=== PATIENT | female | born 1940 | race Caucasian/White ===

== ENCOUNTER 2019-05-19 11:27 | Emergency (ER) | payer OTHER ==
--- OUTSIDE RECORDS SUMMARY | 2019-05-19 11:31 | XMS REPORT ---
:1940 [facility] Address [address] [place] [address] Dr. Rivera [address] [place] [id number] Care Team Providers Name Role Phone Unavailable Unavailable Unavailable Problems This patient has no known problems. Allergies, Adverse Reactions, Alerts This patient has no known allergies or adverse reactions. Medications This patient has no known medications.
--- NOTE | 2019-05-19 12:54 | RAD REPORT ---
EXAM DESCRIPTION: RAD - Lumbar Spine 3 Views - 05/19/2019 12:48 pm CLINICAL HISTORY: Back pain FINDINGS: The alignment of the lumbar spine is satisfactory. Osteoporosis. Mild compression fracture involves the superior vertebral endplate of L3 vertebral body. I suspect th at it is acute. If clinically indicated this could be confirmed with CT. 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
--- NOTE | 2019-05-19 12:55 | RAD REPORT ---
EXAM DESCRIPTION: RAD - Pelvis - 05/19/2019 12:48 pm CLINICAL HISTORY: Fall, pelvic and hip pain COMPARISON: None. TECHNIQUE: AP imaging of the pelvis was obtained. FINDINGS: No fracture of the bony pelvis. No fracture, dislocation or other acute hip joint finding. Minimal SI joint degenerative change. Lumbar spine degenerative changes are present and separately d etailed. No soft tissue abnormality. IMPRESSION: No fracture or acute findings in the pelvis.
[2019-05-19] MEDS ORDERED: KETOROLAC 30 MG/ML INJ ONE (13:59)
[2019-05-19] MEDS ORDERED: DEXAMETHASONE 10 MG/ML VIAL ONE (13:59)
[2019-05-19] MEDS ORDERED: NA CHLORIDE 0.9% 100 ML IV ONE (14:00)
[2019-05-19] MEDS ORDERED: METHOCARBAMOL 1,000 MG in NA CHLORIDE 0.9% 100 ML IV ONE (14:00)
--- NOTE | 2019-05-19 15:21 | EDPHYS ---
Physician Documentation [facility] Name: Namita Goldstein Age: 79 yrs Sex: Female : 1940 Arrival Date: 05/19/2019 Time: 11:27 Bed 17 Private MD: ED Physician Yared Pizano HPI: 05/19 12:15 This 79 yrs old Female presents to ER via EMS with complaints of Fall Injury. jr8 12:15 This 79 yrs old Female presents to ER via EMS with complaints of Fall Injury. jr8 12:15 Details of fall: The patient fell from an upright position, while walking. Onset: The jr8 symptoms/episode began/occurred acutely, 2 day(s) ago. Associated injuries: The patient sustained injury to the low back, pain with movement. Severity of symptoms: At their worst the symptoms were moderate, in the emergency department the symptoms are unchanged. 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 12:32 It is unknown whether or not the patient has had similar symptoms in the past. The jr8 patient has not recently seen a physician. Historical: - Allergies: 11:29 Cipro; hj 11:29 Levaquin; hj - PMHx: 11:29 Diabetes - IDDM; Hypertension; Hypothyroidism; hj - PSHx: 11:29 Cholecystectomy; back x2; Hysterectomy; hj - Immunization history:: Adult Immunizations not up to date. - Social history:: Smoking status: Patient/guardian denies using tobacco, Patient/guardian denies using alcohol. - Ebola Screening: : Patient negative for fever greater than or equal to 101.5 degrees Fahrenheit, and additional compatible Ebola Virus Disease symptoms Patient denies exposure to infectious person Patient denies travel to an Ebola-affected area in the 21 days before illness onset. ROS: 12:15 Constitutional: Negative for fever, chills, and weight loss, Eyes: Negative for injury, jr8 pain, redness, and discharge, ENT: Negative for injury, pain, and discharge, Neck: Negative for injury, pain, and swelling, Cardiovascular: Negative for chest pain, palpitations, and edema, Respiratory: Negative for shortness of breath, cough, wheezing, and pleuritic chest pain, Abdomen/GI: Negative for abdominal pain, nausea, vomiting, diarrhea, and constipation, Skin: Negative for injury, rash, and discoloration, Neuro: Negative for headache, weakness, numbness, tingling, and seizure. 12:15 Back: Positive for pain with movement, of the lumbar area, sacrum and right low back, Negative for injury or acute deformity, pain at rest. 12:15 MS/extremity: Negative for injury or acute deformity. 12:15 All other systems are negative. Exam: 12:15 Constitutional: This is a well developed, well nourished patient who is awake, alert, jr8 and in no acute distress. Head/Face: Normocephalic, atraumatic. Eyes: Pupils equal round and reactive to light, extra-ocular motions intact. Lids and lashes normal. Conjunctiva and sclera are non-icteric and not injected. Cornea within normal limits. Periorbital areas with no swelling, redness, or edema. Neck: Trachea midline, no thyromegaly or masses palpated, and no cervical lymphadenopathy. Supple, full range of motion without nuchal rigidity, or vertebral point tenderness. No Meningismus. Chest/axilla: Normal chest wall appearance and motion. Nontender with no deformity. No lesions are appreciated. Cardiovascular: Regular rate and rhythm with a normal S1 and S2. No gallops, murmurs, or rubs. Normal PMI, no JVD. No pulse deficits. Respiratory: Lungs have equal breath sounds bilaterally, clear to auscultation and percussion. No rales, rhonchi or wheezes noted. No increased work of breathing, no retractions or nasal flaring. Abdomen/GI: Soft, non-tender, with normal bowel sounds. No distension or tympany. No guarding or rebound. No evidence of tenderness throughout. Skin: Warm, dry with normal turgor. Normal color with no rashes, no lesions, and no evidence of cellulitis. 12:15 Back: pain, that is moderate, ROM is painful, with all movement, Straight leg raises: of both lower extremities does not illicit pain. 12:15 Musculoskeletal/extremity: Exam is negative for bony tenderness, deformity, edema, injury, pelvic instability, Extremities: all appear grossly normal, with no appreciated pain with palpation, ROM: full passive range of motion, in all extremities, limited active range of motion, in the right leg, Circulation is intact in all extremities. Sensation intact. 12:15 Musculoskeletal/extremity: Joints: All joints appear normal with full range of motion. 12:15 Neuro: Exam negative for focal neuro deficits, sensory deficits, cerebellar deficits, Orientation: to person, place, time \T\ situation. Mentation: appropriate for stated age, Memory: appropriate for stated age, Motor: 4/5 strength to right lower extremity, 5/5 all other extremities. Vital Signs: 11:29 Weight 72.57 kg; Height 5 ft. 7 in. (170.18 cm); Pain 9/10; hj 12:58 BP 124 / 53; Pulse 66; Resp 16; Pulse Ox 100% ; bp 13:30 BP 110 / 96; Pulse 70; Resp 17; Temp 98.0(TE); Pulse Ox 100% on R/A; mh5 14:00 BP 128 / 56; Pulse 70; Resp 17; Temp 97.8(O); Pulse Ox 100% on R/A; mh5 15:00 BP 129 / 56; Pulse 71; Resp 18; Temp 97.7(TE); Pulse Ox 99% on R/A; mh5 11:29 Body Mass Index 25.06 (72.57 kg, 170.18 cm) hj MDM: 12:03 Patient medically screened. jr8 13:25 ED course: Calling [facility] for consult . jr8 15:17 Data reviewed: vital signs, nurses notes, radiologic studies, plain films, and as a jr8 result, I will discharge patient. Data interpreted: Pulse oximetry: on room air is 99 %. Interpretation: normal. Counseling: I had a detailed discussion with the patient and/or guardian regarding: the historical points, exam findings, and any diagnostic results supporting the discharge/admit diagnosis, radiology results, the need for outpatient follow up, a neurosurgeon, a orthopedic surgeon, to return to the emergency department if symptoms worsen or persist or if there are any questions or concerns that arise at home. Response to treatment: the patient's symptoms have markedly improved after treatment. ED course: Tried [facility] again but could not be reached. Patient feeling better. Will d/c home with robaxin and medrol dose pack. To watch sugars closely. If worse to come back. Otherwise to f/u with upcoming appointment . 05/19 12:05 Order name: XRAY Lumbar Spine (3 Views); Complete Time: 13:04 jr8 05/19 12:05 Order name: XRAY Pelvis; Complete Time: 13:04 8 Administered Medications: 13:30 Drug: Decadron - Dexamethasone 10 mg Route: IVP; Site: right antecubital; bp 15:38 Follow up: Response: No adverse reaction; Pain is decreased bp 13:30 Drug: TORadol - Ketorolac 15 mg Route: IVP; Site: right antecubital; bp 15:39 Follow up: Response: No adverse reaction; Pain is decreased bp 13:51 Drug: Robaxin 1 grams Route: IVPB; Infused Over: 1 hrs; Site: right antecubital; bp 15:38 Follow up: IV Status: Completed infusion; IV Intake: 100ml bp Disposition: 05/20 13:06 Co-signature as Attending Physician, Yared Pizano MD Available for consultation at ps1 all times. . Chart complete. Disposition: 05/19/19 15:20 Discharged to Home. Impression: Wedge compression fracture of third lumbar vertebra. - Condition is Stable. - Discharge Instructions: Spinal Compression Fracture. - Prescriptions for Robaxin 500 mg Oral Tablet - take 2 tablet by ORAL route every 6 hours As needed; 40 tablet. Medrol (Bert) 4 mg Oral Tablets, Dose Pack - take 1 tablet by ORAL route as directed - follow package instructions; 1 packet. - Medication Reconciliation Form, Thank You Letter, Antibiotic Education, Prescription Opioid Use form. - Follow up: Private Physician; When: 7 - 10 days; Reason: Recheck today's complaints, Continuance of care, Re-evaluation by your physician. - Problem is new. - Symptoms have improved. Signatures: Dispatcher [employer] EDMS Jonathan Howard PA PA jr8 Tiburcio Quevedo RN RN hj Peltier, Brian, RN RN bp Singer, Phillip, MD MD ps1 Corrections: (The following items were deleted from the chart) 05/19 12:33 12:15 Constitutional: Negative for fever, chills, and weight loss, Eyes: Negative for jr8 injury, pain, redness, and discharge, ENT: Negative for injury, pain, and discharge, Neck: Negative for injury, pain, and swelling, Cardiovascular: Negative for chest pain, palpitations, and edema, Respiratory: Negative for shortness of breath, cough, wheezing, and pleuritic chest pain, Abdomen/GI: Negative for abdominal pain, nausea, vomiting, diarrhea, and constipation, Skin: Negative for injury, rash, and discoloration, Neuro: Negative for headache, weakness, numbness, tingling, and seizure, jr8 15:39 15:20 05/19/2019 15:20 Discharged to Home. Impression: Wedge compression fracture of bp third lumbar vertebra. Condition is Stable. Forms are Medication Reconciliation Form, Thank You Letter, Antibiotic Education, Prescription Opioid Use. Follow up: Private Physician; When: 7 - 10 days; Reason: Recheck today's complaints, Continuance of care, Re-evaluation by your physician. Problem is new. Symptoms have improved. jr8
--- NOTE | 2019-05-19 15:21 | ER ---
Nurse's Notes [facility] Name: Namita Goldstein Age: 79 yrs Sex: Female : 1940 Arrival Date: 05/19/2019 Time: 11:27 Bed 17 Private MD: Diagnosis: Wedge compression fracture of third lumbar vertebra Presentation: 05/19 11:27 Presenting complaint: EMS states: pt fell last Sunday at home now complaining of L R hj lower back pain; pain is 9/10; 20 g R AC; BGL- 268;. Transition of care: patient was not received from another setting of care. Onset of symptoms was May 19, 2019. Risk Assessment: Do you want to hurt yourself or someone else? Patient reports no desire to harm self or others. Initial Sepsis Screen: Does the patient meet any 2 criteria? No. Patient's initial sepsis screen is negative. Does the patient have a suspected source of infection? No. Patient's initial sepsis screen is negative. Care prior to arrival: None. 11:27 Method Of Arrival: EMS: [facility] 11:27 Acuity: MARIA ANTONIA 4 hj 13:51 Acuity: MARIA ANTONIA 3 ss Triage Assessment: 11:30 General: Appears in no apparent distress. uncomfortable, Behavior is cooperative, bp appropriate for age, anxious. Pain: Complains of pain in sacrum and lumbar area. EENT: No deficits noted. Neuro: No deficits noted. Cardiovascular: No deficits noted. Respiratory: No deficits noted. GI: No signs and/or symptoms were reported involving the gastrointestinal system. : No signs and/or symptoms were reported regarding the genitourinary system. Derm: No deficits noted. Musculoskeletal: Circulation, motion, and sensation intact. Range of motion: intact in all extremities. Injury Description: Bruise sustained to sacrum. Historical: - Allergies: 11:29 Cipro; 11:29 Levaquin; hj - PMHx: 11:29 Diabetes - IDDM; Hypertension; Hypothyroidism; hj - PSHx: 11:29 Cholecystectomy; back x2; Hysterectomy; hj - Immunization history:: Adult Immunizations not up to date. - Social history:: Smoking status: Patient/guardian denies using tobacco, Patient/guardian denies using alcohol. - Ebola Screening: : Patient negative for fever greater than or equal to 101.5 degrees Fahrenheit, and additional compatible Ebola Virus Disease symptoms Patient denies exposure to infectious person Patient denies travel to an Ebola-affected area in the 21 days before illness onset. Screenin:30 Abuse screen: Denies threats or abuse. Denies injuries from another. Nutritional hj screening: No deficits noted. Tuberculosis screening: No symptoms or risk factors identified. Fall Risk Fall in past 12 months (25 points). Assessment: 11:30 General: SEE TRIAGE NOTE. bp 12:59 Reassessment: ALL CURRENT ORDERS COMPLETED, PT RETURNED FROM XRAY. bp 15:35 Reassessment: PT D/C HOME VIA W/C WITH FAMILY, DX WITH COMPRESSION FX. bp Vital Signs: 11:29 Weight 72.57 kg; Height 5 ft. 7 in. (170.18 cm); Pain 9/10; hj 12:58 BP 124 / 53; Pulse 66; Resp 16; Pulse Ox 100% ; bp 13:30 BP 110 / 96; Pulse 70; Resp 17; Temp 98.0(TE); Pulse Ox 100% on R/A; mh5 14:00 BP 128 / 56; Pulse 70; Resp 17; Temp 97.8(O); Pulse Ox 100% on R/A; mh5 15:00 BP 129 / 56; Pulse 71; Resp 18; Temp 97.7(TE); Pulse Ox 99% on R/A; mh5 11:29 Body Mass Index 25.06 (72.57 kg, 170.18 cm) hj ED Course: 11:27 Patient arrived in ED. hj 11:28 Triage completed. hj 11:30 Arm band placed on right wrist. hj 11:30 Patient has correct armband on for positive identification. Placed in gown. Bed in low hj position. Call light in reach. Side rails up X 1. Adult w/ patient. 11:30 Maintain EMS IV. Dressing intact. Good blood return noted. Site clean \T\ dry. Gauge \T\ bp site: 20 GAUGE R FA. 11:31 Jonathan Howard PA is PHCP. jr8 11:31 Yared Pizano MD is Attending Physician. jr8 11:31 Kodak Olvera, GEMMA is Primary Nurse. bp 12:48 XRAY Lumbar Spine (3 Views) In Process Unspecified. EDMS 12:49 XRAY Pelvis In Process Unspecified. EDMS 15:36 No provider procedures requiring assistance completed. IV discontinued, intact, bp bleeding controlled, No redness/swelling at site. Pressure dressing applied. Administered Medications: 13:30 Drug: Decadron - Dexamethasone 10 mg Route: IVP; Site: right antecubital; bp 15:38 Follow up: Response: No adverse reaction; Pain is decreased bp 13:30 Drug: TORadol - Ketorolac 15 mg Route: IVP; Site: right antecubital; bp 15:39 Follow up: Response: No adverse reaction; Pain is decreased bp 13:51 Drug: Robaxin 1 grams Route: IVPB; Infused Over: 1 hrs; Site: right antecubital; bp 15:38 Follow up: IV Status: Completed infusion; IV Intake: 100ml bp Intake: 15:38 IV: 100ml; Total: 100ml. bp Outcome: 15:20 Discharge ordered by MD. irwin 15:36 Discharged to home via wheelchair, with family. bp 15:36 Condition: stable 15:36 Discharge instructions given to patient, family, Instructed on discharge instructions, follow up and referral plans. medication usage, Demonstrated understanding of instructions, follow-up care, medications, Prescriptions given X 2. 15:39 Patient left the ED. bp Signatures: Dispatcher [employer] EDMS Belia Fountain RN RN ss Roszak, Josh, PA PA jrTiburcio Calle RN RN hj Martinez, Maria [facility] Kodak Olvera RN RN bp Corrections: (The following items were deleted from the chart) 13:01 12:59 Reassessment: ALL CURRENT ORDERS COMPLETED, REPEAT BGL PENDING FOR DISPO bp bp
== END 2019-05-19 15:39 | disposition home or self-care (01) ==
LOC: ER 11:27
DX: S32.030A Wedge compression fracture of third lumbar vertebra, initial encounter for closed fracture (principal); W19.XXXA Unspecified fall, initial encounter; Y93.01 Activity, walking, marching and hiking; Y92.9 Unspecified place or not applicable; Z88.1 Allergy status to other antibiotic agents; I10 Essential (primary) hypertension
CPT/HCPCS: 72100; 72170; 99284; J1100; J2800; 96365; 96366; 96375

== ENCOUNTER 2022-04-08 18:24 | Emergency (ER) | payer OTHER ==
--- OUTSIDE RECORDS SUMMARY | 2022-04-08 18:28 | XMS REPORT | Continuity of Care Document ---
:1940 Author Organization [facility] t Address [address] [place] [address] Care Team Providers Name Role Phone Arcenio ESQUIVEL Primary Care Physician Unavailable Adam MENENDEZ, B Attending Clinician Unavailable MYNOR Attending Clinician Unavailable Constantino LOU Attending Clinician Mynor HONG Attending Clinician Silverio LOU Attending Clinician SILVERIO Attending Clinician Unavailable MYNOR Admitting Clinician Unavailable Mynor HONG Admitting Clinician Payers Payer Name Policy Type Policy Number Effective Date Expiration Date S ource Problems Condition Condition Condition Status Onset Resolution Last Treating Co mments Source Name Details Category Date Date Treatment Clinician Date Acute Acute Disease Active [facility] respirator respirator 1-12 [place] Medical COVID-19 COVID-19 Branch 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 ICD10 Diagnosis Term Lot Technician Utility Essential Essential Disease Active Uni vers hypertensi hypertensi 2-19 it y of on, benign [place], benign [place] Allergies, Adverse Reactions, Alerts Allergy Allergy Status Severity Reaction(s) Onset Inactive Treating Comm ents Source Name Type Date Date Clinician ciproflo DA Active U 2018-11 [facility] xacin 0-14 [place] [facility] levoflox DA Active U 2018-11 [facility] acin 0-14 [place] 00:[facility] ciproflo DA Active U [facility] xacin 7-29 [place] 00:00: [facility] levoflox DA Active U 0 [facility] acin 7-29 [place] 00:00: [facility] ciproflo DA Active U 0 [facility] xacin 7-26 [place] 00:00: [facility] levoflox DA Active U 2018-0 [facility] acin 7-26 [place] 00:00: [facility] Levoflox Propensi Active Other - See 2019 [place] U nivers acin ty to comments 6-06 problems ity of adverse 00:00: [place] reaction 00 Medical s Branch CIPROFLO DRUG Active Other-Cmnt 2019 Univ ers XACIN INGREDI 6- ity of 00:00: [place] 00 Medical Branch LEVOFLOX DRUG Active Other-Cmnt 20190 Univ ers ACIN INGREDI 6 ity of 00:00: [place] 00 Medical Branch Ciproflo Propensi Active Other - See 20190 [place] U nivers xacin ty to comments 6-06 problems ity of adverse 00:00: [place] reaction 00 Medical s Branch Social History Social Habit Start Date Stop Date Quantity Comments Source Exposure to Not sure University of SARS-CoV-2 [place] Medical (event) Branch History SDOH University o f Alcohol Std [place] [facility] Drinks Branch History SDCA University o f Alcohol Binge [place] [facility] al Branch History [facility] University o f Alcohol Comment [place] Med ical Branch Alcohol intake 2021-12-03 2021-12-03 Lifetime University of 00:00:00 00:00:00 non-drinker [place] Medical (finding) Branch Tobacco use and 2021-11-30 2021-11-30 Never used Universit y of exposure 00:00:00 00:00:00 [place] [facility] Branch History SDOH 2021-11-30 2021-11-30 1 University o f Alcohol Frequency 00:00:00 00:00:00 [place] M edical Branch Sex [birth year] Universit y of 00:00:00 00:00:00 [facility] [place] [facility] Smoking Status Start Date Stop Date Source Never smoker [facility] Medical Branch Medications Ordered Filled Start Stop Current Ordering Indication Dosage Frequency Signature Comments Components Source Medication Medication Date Date Medication? Clinician (SIG) Name Name cholecalcif Yes [id number] 1000U Take 1 Univers dev, 1-18 tablet by ity of vitamin D3, 00:00: mouth [place] 25 mcg 00 daily. Medical (1,000 Branch unit) tablet zinc Yes [id number] 220mg Take 1 Unive rs sulfate 50 1-18 capsule by ity of mg zinc 00:00: mouth [place] (220 mg) 00 daily. Medical capsule Branch cholecalcif Yes [id number] 1000U Take 1 Univers dev, 1-18 tablet by ity of vitamin D3, 00:00: mouth [place] 25 mcg 00 daily. Medical (1,000 Branch unit) tablet zinc Yes [id number] 220mg Take 1 Unive rs sulfate 50 1-18 capsule by ity of mg zinc 00:00: mouth [place] (220 mg) 00 daily. Medical capsule Branch levothyroxi Yes 50ug Take 50 Uni vers ne 1-17 mcg by ity of (SYNTHROID) 16:12: mouth [place] 50 mcg 51 every Medical tablet morning. Branch levothyroxi Yes 50ug Take 50 Uni vers ne 1-17 mcg by ity of (SYNTHROID) 16:12: mouth [place] 50 mcg 51 every Medical tablet morning. Branch KCL 2022-0 2022- No 40meq 40 mEq, Univers (KLOR-CON -17 -17 Oral, ity of M20) tablet 15:30: 15:54 ONCE, 1 [place] 40 mEq 00 :00 dose, On Medical Mon Branch 12/05/21 at 0930, Routine albuterol-i Yes 1{puff} Inhale 1 Univers pratropium 1-17 Puff every ity of 20-100 00:00: 6 (six) [place] mcg/actuati 00 hours. Medica l on inhaler Branch ascorbic Yes [id number] 500mg Take 1 U nivers acid, 1-17 tablet by ity of vitamin C, 00:00: mouth 2 [place] 500 mg 00 (two) Medical tablet times Branch daily. loperamide Yes [id number] 2mg Take 1 Univers 2 mg 1-17 capsule by ity of capsule 00:00: mouth [place] 00 every 6 Medical (six) Branch hours as needed for Diarrhea. albuterol-i Yes 1{puff} Inhale 1 Univers pratropium 1-17 Puff every ity of 20-100 00:00: 6 (six) [place] mcg/actuati 00 hours. Medica l on inhaler Branch ascorbic Yes [id number] 500mg Take 1 U nivers acid, 1-17 tablet by ity of vitamin C, 00:00: mouth 2 [place] 500 mg 00 (two) Medical tablet times Branch daily. loperamide Yes [id number] 2mg Take 1 Univers 2 mg 1-17 capsule by ity of capsule 00:00: mouth [place] 00 every 6 Medical (six) Branch hours as needed for Diarrhea. acetaminoph 2022- No [id number] 650mg Take 2 Univers en 325 mg 1-17 -18 tablets by ity of tablet 00:00: 05:59 mouth [place] 00 :00 every 6 Medical (six) Branch hours as needed for Pain (scale 1-3) or Temp > 38.5 C. acetaminoph 2022- No [id number] 650mg Take 2 Univers en 325 mg 1-17 -18 tablets by ity of tablet 00:00: 05:59 mouth [place] 00 :00 every 6 Medical (six) Branch hours as needed for Pain (scale 1-3) or Temp > 38.5 C. codeine-gua 2021- No [id number] 10mL Take 10 mL Univers ifenesin 12-0525 by mouth ity of 10-100 mg/5 00:00: 05:59 every 6 [place] mL oral 00 :00 (six) Medical solution hours as Branch needed for Cough for up to 7 days. Indication s: acute pain codeine-gua 2021- No [id number] 10mL Take 10 mL Univers ifenesin 12-0525 by mouth ity of 10-100 mg/5 00:00: 05:59 every 6 [place] mL oral 00 :00 (six) Medical solution hours as Branch needed for Cough for up to 7 days. Indication s: acute pain dexAMETHaso 2021- No [id number] 6mg Take 1 Univers ne 6 mg 12-05 tablet by ity of tablet 00:00: 05:59 mouth [place] 00 :00 daily for Medical 4 days. Branch dexAMETHaso 2021- No [id number] 6mg Take 1 Univers ne 6 mg 12-05 tablet by ity of tablet 00:00: 05:59 mouth [place] 00 :00 daily for Medical 4 days. Branch insulin Yes 50U 50 Units, Unive rs glargine 1-16 Subcutaneo ity o f (LANTUS 15:00: us, DAILY, [place] U-100) 00 First dose Medical injection (after Branch 50 Units last modificati on) on 12/04/21 at 0900, Until Discontinu ed, Routine Sliding Yes 21U Subcutaneo Univ ers Scale 1-15 us, TID ity of Insulin - 18:00: MEALS, [place] Lispro 00 First dose Medical (HumaLOG) + (after Branch Fsbg last Testing modificati on) on 12/03/21 at 1200, Until Discontinu ed, Routine furosemide Yes 20mg 20 mg, Unive rs (LASIX) 1-15 Slow IV ity of injection 15:00: Push, [place] 20 mg 00 DAILY, Medical First dose Branch on 12/03/21 at 0900, Until Discontinu ed, Routine insulin 2021- No 40U 40 Units, [facility] glargine 12-02 Subcutaneo ity of (LANTUS 15:00: 16:33 us, DAILY, [place] as U-100) 00 :24 First dose Medical injection (after Branch 40 Units last modificati on) on Sun12/02/21 at 0900, Until Discontinu ed, Routine insulin 2021- No 18U 18 Units, [facility] lispro 12-02 Subcutaneo ity of (human) 14:00: 16:33 us, TID [place] (HumaLOG 00 :24 MEALS, Medical U-100) First dose Branch injection (after 18 Units last modificati on) on Sun12/02/21 at 0800, Until Discontinu ed, Routine melatonin Yes 6mg 6 mg, Univers (MELATIN) 12-02 Oral, QHS, ity of tablet 6 mg 03:00: First dose [place] 00 on [place] Medical 12/01/21 at Branch 2100, Until Discontinu ed, Routine loperamide Yes 2mg 2 mg, Univer s (IMODIUM 12-01 Oral, ity of A-D) 19:16: Q6HPRN, [place] capsule 2 27 Starting Medica l mg on [place] Branch 12/01/21 at 1316, Until Discontinu ed, Routine, Diarrhea insulin 2021- No 15U 15 Units, [facility] lispro 12-01 Subcutaneo ity of (human) 18:00: 13:43 us, TID [place] (HumaLOG 00 :49 MEALS, Medical U-100) First dose Branch injection (after 15 Units last modificati on) on [place] 12/01/21 at 1200, Until Discontinu ed, Routine sodium 2021- No 30g 30 g, Univers polystyrene 12-01 Oral, ity of sulfonate 16:30: 16:26 ONCE, 1 [place] (KAYEXALATE 00 :00 dose, On Medi woody ) 15 [place] Branch gram/60 mL 12/01/21 at suspension 1030, 30 g Routine insulin 2021- No 30U 30 Units, [facility] glargine 12-01 Subcutaneo ity of (LANTUS 16:15: 13:43 us, DAILY, [place] U-100) 00 :49 First dose Medical injection (after Branch 30 Units last modificati on) on [place] 12/01/21 at 1015, Until Discontinu ed, Routine zinc 2021-0 Yes 220mg 220 mg, Univers sulfate 12-01 Oral, ity of (ORAZINC) 15:00: DAILY, [place] capsule 220 00 First dose Me dical mg on [facility] Branch 12/01/21 at 0900, Until Discontinu ed, Routine cholecalcif 0 Yes 1000U 1,000 [facility] dev 12-01 Units, ity of (vitamin 15:00: Oral, [place] D3) tablet 00 DAILY, Medical 1,000 Units First dose Br anch on [place] 12/01/21 at 0900, Until Discontinu ed, Routine enoxaparin 0 Yes 40mg 40 mg, [facility] rs (LOVENOX) 12-01 Subcutaneo ity of injection 15:00: [place], DAILY, [place] 40 mg 00 First dose Medical on [facility] Branch 12/01/21 at 0900, Until Discontinu ed, Routine losartan 2021-0 2021- No 25mg 25 mg, [facility] (COZAAR) 12-01 Oral, ity of tablet 25 15:00: 18:33 DAILY, [place] mg 00 :00 First dose Medical on [facility] Branch 12/01/21 at 0900, Until Discontinu ed, Routine Sliding 0 Yes Subcutaneo [facility] Scale - us, TID ity of Insulin - 14:00: MEALS+HS, [place] Lispro 00 First dose Medical (HumaLOG) + on [facility] Branch Fsbg 12/01/21 at Testing 0800, Until Discontinu ed, Routine mycophenola 0 Yes 500mg 500 mg, Un eduard te mofetil 12-01 Oral, ity of (CELLCEPT) 14:00: Q12H, [place] tablet 500 00 First dose Med ical mg on [facility] Branch 12/01/21 at 0800, Until Discontinu ed, Routine
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 pratropium 12-01 Inhalation ity of (COMBIVENT 06:00: , Q6H, [place] RESPIMAT) 00 First dose Medi woody 20-100 on [place] Branch mcg/actuati 12/01/21 at on inhaler 0000, 1 Puff Until Discontinu ed, Routine
Is this order for a patient with suspected or confirmed COVID-19 infection? Yes glucagon Yes 1mg 1 mg, Univers (GLUCAGEN 12-01 Intramuscu ity of DIAGNOSTIC 03:15: lar, PRN, [place] KIT) 33 Starting Medical injection 1 on Wed Branch mg 11/30/21 at 2114, Until Discontinu ed, FEROZ, Blood Glucose < or = 70 mg/dL and patient is unable to swallow or has mental changes. dextrose 50 Yes 25mL 25 mL, Univ ers % in water 12-01 Slow IV ity of (D50W) 03:15: Push, PRN, [place] injection 33 Starting Medica l 25 mL on Wed Branch 11/30/21 at 2114, Until Discontinu ed, FEROZ, Blood Glucose < or = 70 mg/dL and patient is unable to swallow or has mental status changes. benzonatate Yes 200mg 200 mg, Un eduard (TESSALON 1-13 Oral, ity of PERLES) 03:13: Q8HPRN, [place] capsule 200 01 Starting Medi woody mg on Wed Branch 11/30/21 at 2112, Until Discontinu ed, Routine, Cough Sliding 2021-0 2021- No Subcutaneo Uni vers Scale -13 12-01 us, TID ity of Insulin - 03:00: 03:15 MEALS+HS, [place] Lispro 00 :10 First dose Medical (HumaLOG) + on Sun Branch Fsbg 11/30/21 at Testing 2100, Until Discontinu ed, Routine ascorbic 0 Yes 500mg 500 mg, Unive rs acid -13 Oral, BID, ity of (vitamin C) 02:00: First dose [place] (VITAMIN C) 00 on Sun Medica l tablet 500 11/30/21 at [facility] mg 2000, Until Discontinu ed, Routine dexamethaso 0 Yes 6mg 6 mg, Slow Univers ne 12-01 IV Push, ity of (DECADRON 00:45: DAILY, [place] PHOSPHATE) 00 First dose Med ical injection 6 on Sun Branch mg 11/30/21 at 1845, Until Discontinu ed, Routine codeine-gua 0 Yes 10mL 10 mL, Univ ers ifenesin 12-01 Oral, ity of (ROBITUSSIN 00:39: Q6HPRN, [place] AC) 10-100 36 Starting Medic al mg/5 mL on Sun Branch oral 11/30/21 at solution 10 1839, mL Until Discontinu ed, Routine, Cough ondansetron 0 Yes 4mg 4 mg, Slow Univers (ZOFRAN 12-01 IV Push, ity of (PF)) 00:38: Q6HPRN, [place] injection 4 26 Starting Medi woody mg on Sun Branch 11/30/21 at 1838, Until Discontinu ed, Routine, Nausea and Vomiting (N/V) acetaminoph 0 Yes 650mg 650 mg, Un eduard en 12-01 Oral, ity of (TYLENOL) 00:38: Q6HPRN, [place] tablet 650 13 Starting Medic al mg on Sun Branch 11/30/21 at 1838, Until Discontinu ed, Routine, Pain (scale 1-3), Temp > 38.5 C iopamidol 2021-0 202- No [id number] 100mL 100 mL, Univers (ISOVUE 12-01- Intravenou ity o f 370-500 mL) 00:15: 00:15 s, ONCE, 1 [place] injection 00 :00 dose, On Medica l 100 mL Wed Branch 11/30/21 at 1815, Routine levothyroxi Yes 50ug Take 50 Uni vers ne 1-12 mcg by ity of (SYNTHROID) 21:14: mouth [place] 50 mcg 47 every Medical tablet morning. Branch albuterol 2021- No [id number] 2{puff} Univers (VENTOLIN) 11-30 ity of inhaler 2 19:32: 19:39 [place] Puff 00 :00 Medical Branch albuterol 2021- No [id number] 2{puff} 2 Puff, Univers (VENTOLIN) 11-30 Inhalation it y of inhaler 2 19:32: 19:39 , ONCE, 1 [place] Puff 00 :00 dose, On Medical Wed Branch 11/30/21 at 1345, Routine benzonatate Yes [id number] 200mg Take 2 Univers (TESSALON 1-12 capsules ity of PERLES) 100 00:00: by mouth [place] mg capsule 00 every 8 Medica l (eight) Branch hours as needed for Cough. benzonatate Yes [id number] 200mg Take 2 Univers (TESSALON 1-12 capsules ity of PERLES) 100 00:00: by mouth [place] mg capsule 00 every 8 Medica l (eight) Branch hours as needed for Cough. benzonatate Yes [id number] 200mg Take 2 Univers (TESSALON 1-12 capsules ity of PERLES) 100 00:00: by mouth [place] mg capsule 00 every 8 Medica l (eight) Branch hours as needed for Cough. benzonatate Yes [id number] 200mg Take 2 Univers (TESSALON 1-12 capsules ity of PERLES) 100 00:00: by mouth [place] mg capsule 00 every 8 Medica l (eight) Branch hours as needed for Cough. NOVOLOG 2020-11 Yes Univers U-100 2-19 ity of INSULIN 00:00: [place] ASPART 100 00 Medical unit/mL Branch solution NOVOLOG 2020-11 Yes Univers U-100 2-19 ity of INSULIN 00:00: [place] ASPART 100 00 Medical unit/mL Branch solution NOVOLOG 2020-11 Yes Univers U-100 2-19 ity of INSULIN 00:00: [place] ASPART 100 00 Medical unit/mL Branch solution NOVOLOG 2020-11 Yes Univers U-100 2-19 ity of INSULIN 00:00: [place] ASPART 100 00 Medical unit/mL Branch solution traMADoL 50 2020-11 Yes Univer s mg tablet 2-13 ity of 00:00: [place] 00 Medical Branch traMADoL 50 2020-11 Yes Univer s mg tablet 2-13 ity of 00:00: [place] 00 Medical Branch traMADoL 50 2020-11- No Unive rs mg tablet 2-13 - ity of 00:00: 00:00 [place] 00 :00 Medical Branch mycophenola 2020-11 Yes Univer s te mofetil 1-23 ity of 500 mg 00:00: [place] tablet 00 Medical Branch mycophenola 2020-11 Yes Univer s te mofetil 1-23 ity of 500 mg 00:00: [place] tablet 00 Medical Branch mycophenola 2020-11 Yes Univer s te mofetil 1-23 ity of 500 mg 00:00: [place] tablet 00 Medical Branch mycophenola 2020-11 Yes Univer s te mofetil 1-23 ity of 500 mg 00:00: [place] tablet 00 Medical Branch allopurinoL 2020-11 Yes Univer s 100 mg 1-22 ity of tablet 00:00: [place] 00 Medical Branch metoprolol 2020-11 Yes Univers succinate 1-22 ity of XL 100 mg 00:00: [place] 24 hr 00 Medical tablet Branch allopurinoL 2020-11 Yes Univer s 100 mg 1-22 ity of tablet 00:00: [place] 00 Medical Branch metoprolol 2020-11 Yes Univers succinate 1-22 ity of XL 100 mg 00:00: [place] 24 hr 00 Medical tablet Branch allopurinoL 2020-11 Yes Univer s 100 mg 1-22 ity of tablet 00:00: [place] 00 Medical Branch allopurinoL 2020-11 Yes Univer s 100 mg 1-22 ity of tablet 00:00: [place] 00 Medical Branch metoprolol 2020-11- No Univer s succinate 1-22 - ity of XL 100 mg 00:00: 00:00 [place] 24 hr 00 :00 Medical tablet Branch losartan 25 2020-11 Yes Univer s mg tablet 0-25 ity of 00:00: Medical Branch losartan 25 2020-11 Yes Univer s mg tablet 0-25 ity of 00:00: Medical Branch losartan 25 2020-2021- No Unive rs mg tablet 0-25 -17 ity of 00:00: 00:00 [place] 00 :00 Medical Branch naproxen Yes [id number] 550mg Take 1 U nivers sodium 6-06 tablet by ity of (ANAPROX 00:00: mouth 2 [place] DS) 550 mg 00 (two) Medical tablet times Branch daily with meals. naproxen Yes [id number] 550mg Take 1 U nivers sodium 6-06 tablet by ity of (ANAPROX 00:00: mouth 2 [place] DS) 550 mg 00 (two) Medical tablet times Branch daily with meals. naproxen 2021- No [id number] 550mg Take 1 Univers sodium 6-06 - tablet by ity of (ANAPROX 00:00: 00:00 mouth 2 [place] DS) 550 mg 00 :00 (two) Medical tablet times Branch daily with meals. METFORMIN Yes [id number] 1 by mouth Univers 1,000 MG 2-19 two times ity of ORAL TAB 00:00: a day [place] 00 approx 30 Medical mins Branch before meals RAMIPRIL 5 Yes 1 by mouth U nivers MG ORAL CAP 2-19 every day ity of 00:00: [place] 00 Medical Branch METFORMIN 2008- Yes [id number] 1 by mouth Univers 1,000 MG 2-19 two times ity of ORAL TAB 00:00: a day [place] approx 30 Medical mins Branch before meals METFORMIN 2008- Yes [id number] 1 by mouth Univers 1,000 MG 2-19 two times ity of ORAL TAB 00:00: a day [place] 00 approx 30 Medical mins Branch before meals METFORMIN 2008- Yes [id number] 1 by mouth Univers 1,000 MG 2-19 two times ity of ORAL TAB 00:00: a day [place] 00 approx 30 Medical mins Branch before meals RAMIPRIL 5 2021- No 1 by mouth Univers MG ORAL CAP 2-19 11-30 every day it y of 00:00: 00:00 [place] 00 :00 Medical Branch Vital Signs Vital Name Observation Time Observation Value Comments Source Respiratory rate 2021-12-05 16 /min University 19:03:00 [facility] [place] [facility] Oxygen saturation 2021-12-05 96 /min University in Arterial blood 19:03:00 [facility] by Pulse oximetry Branch Systolic blood 2021-12-05 138 mm[Hg] University of pressure 17:16:00 [facility] [place] [facility] Diastolic blood 2021-12-05 74 mm[Hg] University o f pressure 17:16:00 [facility] [place] [facility] Heart rate 2021-12-05 99 /min University 17:16:00 [facility] [place] [facility] Body temperature 2021-12-05 36.89 [place] University of 17:16:00 [facility] [place] [facility] Body weight 2021-12-03 76.476 kg University of 09:54:00 [facility] [place] [facility] BMI 2021-12-03 26.41 kg/m2 University of 09:54:00 [facility] [place] [facility] Oxygen saturation 2021-11-30 90 /min sitting in [facility] in Arterial blood 20:09:00 [facility] by Pulse oximetry Branch Systolic blood 2021-11-30 140 mm[Hg] University of pressure 19:14:00 [facility] [place] [facility] Diastolic blood 2021-11-30 69 mm[Hg] University o f pressure 19:14:00 [facility] [place] [facility] Heart rate 2021-11-30 93 /min University of 19:14:00 [facility] [place] [facility] Body temperature 2021-11-30 37.44 [place] University of 19:14:00 [facility] [place] [facility] Respiratory rate 2021-11-30 18 /min University of 19:14:00 [facility] [place] [facility] Body height 2021-11-30 170.2 cm University of 19:14:00 [facility] [place] [facility] Body weight 2021-11-30 75.116 kg University of 19:14:00 [facility] [place] [facility] BMI 2021-11-30 25.94 kg/m2 University of 19:14:00 [facility] [place] [facility] Procedures Procedure Date / Time Performing Clinician Source Performed POCT GLUCOSE (AUTOMATED) 2021-12-05 18:20[facility] 2021-12-05 17:16:[facility] (AUTOMATED) 2021-12-05 13:40:00 [place], Jim [facility] MAGNESIUM 2021-12-05 12:26:00 Mynor [facility] COMP. METABOLIC PANEL 2021-12-05 12:26:00 Mynor [facility] ([id number]) [facility] POCT GLUCOSE (AUTOMATED) 2021-12-05 02:06[facility] 2021-12-04 22:45[facility] 2021-12-04 17:52:00 Mynor [facility] POCT GLUCOSE (AUTOMATED) 2021-12-04 14:56:00 Mynor [facility] LACTATE DEHYDROGENASE 2021-12-04 11:55:00 Mynor [facility] MAGNESIUM 2021-12-04 11:55:00 Mynor [facility] C-REACTIVE PROTEIN 2021-12-04 11:55:00 Mynor [facility] COMP. METABOLIC PANEL 2021-12-04 11:55:00 Mynor [facility] ([id number]) [facility] CBC WITH DIFF 2021-12-04 11:55:00 Mynor [facility] POCT GLUCOSE (AUTOMATED) 2021-12-04 01:43:[address] [facility] POCT GLUCOSE (AUTOMATED) 2021-12-03 22:18[facility]ATED[facility] 2021-12-03 17:25:00 Mynor [facility] POCT GLUCOSE (AUTOMATED) 2021-12-03 13:24:00 [facility]OS[facility] 2021-12-03 11:02:00 Daryl [facility] MAGNESIUM 2021-12-03 11:02:00 Daryl [facility] COMP. METABOLIC PANEL 2021-12-03 11:02:00 Jim Lowe [facility] ([id number]) Medical [place] CBC WITH DIFF 2021-12-03 11:02:00 [facility] OSMOLALITY URINE 2021-12-02 23:06:00 Daryl, [facility] POTASSIUM, URINE RANDOM 2021-12-02 23:06:00 Daryl, [facility] SODIUM, URINE RANDOM 2021-12-02 23:06:00 Daryl, [facility] CHLORIDE, URINE RANDOM 2021-12-02 23:06:00 Daryl, [facility] PROTEIN CREAT RATIO URINE 2021-12-02 23:06:[address] [facility] POCT GLUCOSE (AUTOMATED) 2021-12-02 23:00:[address] [facility] ACUTE CARE ARTERIAL BLOOD 2021-12-02 21:22:00 Braydon Brito [facility] POCT GLUCOSE (AUTOMATED) 2021-12-02 18:15:[address] [facility] POCT GLUCOSE (AUTOMATED) 2021-12-02 14:30:[address] [facility] LACTATE DEHYDROGENASE 2021-12-02 09:34:00 [facility] 2021-12-02 09:34:00 Jim Lowe [facility] COMP. METABOLIC PANEL 2021-12-02 09:34:00 [id number] CBC WITH DIFF 2021-12-02 09:34:00 Jim Lowe [facility] POCT GLUCOSE (AUTOMATED) 2021-12-02 02:30:00 Jim Lowe [facility] POCT GLUCOSE (AUTOMATED) 2021-12-01 23:02:[address] [facility] CLOSTRIDIUM DIFFICILE 2021-12-01 20:38:00 Mynor [facility] TOXIN [facility] FECAL PATHOGENS BY PCR 2021-12-01 20:38:00 Mynor [facility] POCT GLUCOSE (AUTOMATED) 2021-12-01 17:24:00 [facility] 2021-12-01 13:59:00 Mynor [facility] CBC WITH DIFF 2021-12-01 12:40:00 Mynor [facility] HEPATIC FUNCTION PANEL 2021-12-01 11:25:00 Mynor [facility] ([id number]) (ALB,T.PRO,BILI Medical Branch T,BU/BC,ALT,AST,ALK PHOS) BASIC METABOLIC PANEL 2021-12-01 11:25:00 Mynor [facility] (NA, K, CL, CO2, GLUCOSE, Medica l Branch BUN, CREATININE, CA) POCT GLUCOSE (AUTOMATED) 2021-12-01 02:25:[address] [facility] CT CHEST PULMONARY 2021-11-30 23:00:11 Ranjana Meeks [facility] ANGIOGRAM Medical Branch URINALYSIS 2021-11-30 21:55:00 [facility] (ID NOW RAPID 2021-11-30 21:55:00 Constantino [facility] TESTING) Medical Branch LAB ONLY COVID 2021-11-30 21:55:00 Constantino [facility] INTERPRETATION [facility] COMP. METABOLIC PANEL 2021-11-30 21:44:00 [id number] TROPONIN I 2021-11-30 20:47:00 [facility] WITH DIFF 2021-11-30 20:47:00 [facility] GLYCOSYLATED HEMOGLOBIN 2021-11-30 20:47[facility] PROTHROMBIN TIME / INR 2021-11-30 20:47:00 Ranjana Meeks [facility] N-TERMINAL PRO-BNP 2021-11-30 20:47:00 Ranjana Meeks [facility] HB ECG ROUTINE & RHYTHM 2021-11-30 20:45:53 Ranjana Meeks [facility] CONSENT/REFUSAL FOR 2021-11-30 20:30:56 Doctor Unassigned, [facility] DIAGNOSIS AND TREATMENT [facility] NOTICE OF PRIVACY 2021-11-30 20:30:17 Doctor Unassigned, [facility] [place] [facility] XR CHEST 2 VW 2021-11-30 19:48:00 Mraisa Ovalles [facility] Encounters Start End Encounter Admission Attending Care Care Encounter Source Date/Time Date/Time Type Type Clinicians Facility Department ID 2021-12-07 2021-12-07 Transition JOSH Medina [id number] Univers 00:00:00 00:00:00 of Care Estee BONILLA 350.1.13.10 [id number] [facility] 403 Branch 2021-11-30 2021-12-05 Inpatient X [facility] [id number] Univers 14:38:00 15:40:00 JIM [facility] 2021-11-30 2021-12-05 [facility] 1.2.840. [id number] Univers 14:38:00 15:40:00 Encounter Jim Lowe 350.1.13.[address] [facility] [place] [id number] [facility] 080 Branch 2021-11-30 2021-11-30 [facility] [id number] Univers 13:28:53 14:37:00 Encounter [facility] 350.1.13.10 ity of [place] 4.2.7.2.686 Jaspreet as IMAN?BLEA [id number] Ms moy [facility] [address] [place] MEDICAL OFFICE BUILDING 2021-11-30 2021-11-30 [facility] [id number] Univers 13:20:00 14:10:08 MARISA dial o f [facility] 2021-11-30 2021-11-30 [facility] [id number] Univers 13:20:00 14:10:08 Care [facility] 350.1.13.10 i ty of [place] 4.2.7.2.686 Jaspreet as IMAN?BLEA [phone] Me dical [address] MEDICAL OFFICE BUILDING Results Test Description Test Time Test Comments Results Result Comments Source POCT GLUCOSE (AUTOMATED) 2021-12-05 18:23:13 Test Item Value Reference Range Interpretation Comme nts POCT GLU (test code = 3472863980) 123 mg/dL 70-110 H Lab Interpretation (test code = 81134-9) Abnormal [facility] GLUCOSE (AUTOMATED)2021-12-05 17:19:28 Test Item Value Reference Range Interpretation Comments POCT GLU (test code = 0530169916) 78 mg/dL 70-110 Lab Interpretation (test code = Normal 16403-2) [facility] GLUCOSE (AUTOMATED)2021-12-05 13:57:54 Test Item Value Reference Range Interpretation Comments POCT GLU (test code = 7812454925) 132 mg/dL 70-110 H Lab Interpretation (test code = Abnormal 62422-6) [facility] 13:33:43 Test Item Value Reference Range Interpretation Comments MAGNESIUM (test code = 1182640027) 2.1 mg/dL 1.7-2.4 Lab Interpretation (test code = Normal 18628-1) [facility]OLIC [facility] ([id number])2021-12-05 13:33:23 Test Item Value Reference Range Interpretation Comments NA (test code = 144 mmol/L 135-145 0303314131) K (test code = 3.3 mmol/L 3.5-5.0 L 0425870151) CL (test code = 111 mmol/L 98-108 H 4794102539) CO2 TOTAL (test code = 22 mmol/L 23-31 L 1391357377) AGAP (test code = 2-16 0358432884) BUN (test code = 28 mg/dL 7-23 H 7877276507) GLUCOSE (test code = 120 mg/dL 70-110 H 5381437927) CREATININE (test code = 0.89 mg/dL 0.50-1.04 2648730953) TOTAL BILI (test code = 0.8 mg/dL 0.1-1.4 1483356188) CALCIUM (test code = 8.2 mg/dL 8.6-10.6 L 7070391718) T PROTEIN (test code = 6.8 g/dL 6.3-8.2 0842229358) ALBUMIN (test code = 3.8 g/dL 3.5-5.0 4655350338) ALK PHOS (test code = 85 U/L 34-122 8532290878) ALTv (test code = 210 U/L 5-35 H 1742-6) AST(SGOT) (test code = 220 U/L 13-40 H 4240462954) eGFR (test code = mL/min/1.73m2 2262265799) JAYMIE (test code = JAYMIE) Association of Glomerular Filtration Rate (GFR) and Staging of Kidney Disease* + --+ --+ ------+| GFR (mL/min/1.73 m2) ?| With Kidney Damage ?| ?Without Kidney Damage+ --------+ --------+ +| ?>90 ?| ?Stage one ?| ? Normal ?+ ---+ ---+ -------+| ?60-89 ?| ?Stage two ?| ? Decreased GFR ? + --+ --+ ------+| ?30-59 ?| ?Stage three ?| ? Stage three ? + --+ --+ ------+| ?15-29 ?| ?Stage four ? | ? Stage four ?+ ---+ ---+ -------+| ?<15 (or dialysis) ? ?| ?Stage five ? | ? Stage five ?+ ---+ ---+ -------+ *Each stage assumes the associated GFR level has been in effect for at least three months. ?Stages 1 to 5, with or without kidney disease, indicate chronic kidney disease. Notes: Determination of stages one and two (with eGFR >59mL/min/1.73 m2) requires estimation of kidney damage for at least three months as defined by structural or functional abnormalities of the kidney, manifested by either:Pathological abnormalities or Markers of kidney damage (including abnormalities in the composition of the blood or urine or abnormalities in imaging tests). Lab Interpretation Abnormal (test code = 47450-3) [facility] GLUCOSE (AUTOMATED)2021-12-05 02:12:00 Test Item Value Reference Range Interpretation Comments POCT GLU (test code = 7928405784) 189 mg/dL 70-110 H Lab Interpretation (test code = Abnormal 70272-2) [facility] GLUCOSE (AUTOMATED)2021-12-04 22:48:15 Test Item Value Reference Range Interpretation Comments POCT GLU (test code = 7277405953) 365 mg/dL 70-110 H Lab Interpretation (test code = Abnormal 21825-1) [facility] [id number] 20:10:13 Test Item Value Reference Range Interpretation Comments CRP (test code = 7577659736) 1.2 mg/dL <0.8 H Lab Interpretation (test code = Abnormal 30863-6) [facility] GLUCOSE (AUTOMATED)2021-12-04 17:55:46 Test Item Value Reference Range Interpretation Comments POCT GLU (test code = 3704309803) 264 mg/dL 70-110 H Lab Interpretation (test code = Abnormal 77562-5) [facility] 16:07:16 Test Item Value Reference Range Interpretation Comments MAGNESIUM (test code = 3892079890) 2.1 mg/dL 1.7-2.4 Lab Interpretation (test code = Normal 59182-5) [facility] GLUCOSE (AUTOMATED)2021-12-04 14:59:14 Test Item Value Reference Range Interpretation Comments POCT GLU (test code = 0765875170) 197 mg/dL 70-110 H Lab Interpretation (test code = Abnormal 79838-5) [facility]. METABOLIC PANEL ([id number])2021-12-04 13:25:26 Test Item Value Reference Range Interpretation Comments NA (test code = 144 mmol/L 135-145 4183725139) K (test code = 3.6 mmol/L 3.5-5.0 3206301883) CL (test code = 112 mmol/L 98-108 H 3935556004) CO2 TOTAL (test code = 21 mmol/L 23-31 L 7151838992) AGAP (test code = 2-16 7177586862) BUN (test code = 33 mg/dL 7-23 H 8319630739) GLUCOSE (test code = 183 mg/dL 70-110 H 4574735597) CREATININE (test code = 1.03 mg/dL 0.50-1.04 9325412504) TOTAL BILI (test code = 0.5 mg/dL 0.1-1.6 2179407865) CALCIUM (test code = 8.1 mg/dL 8.6-10.6 L 3061858689) T PROTEIN (test code = 6.4 g/dL 6.3-8.2 3230733821) ALBUMIN (test code = 3.8 g/dL 3.5-5.0 8976010243) ALK PHOS (test code = 78 U/L 34-122 7099309589) ALTv (test code = 207 U/L 5-35 H 1742-6) AST(SGOT) (test code = 275 U/L 13-40 H 5980902712) eGFR (test code = mL/min/1.73m2 1349267845) JAYMIE (test code = JAYMIE) Association of Glomerular Filtration Rate (GFR) and Staging of Kidney Disease* + --+ --+ ------+| GFR (mL/min/1.73 m2) ?| With Kidney Damage ?| ?Without Kidney Damage+ --------+ --------+ +| ?>90 ?| ?Stage one ?| ? Normal ?+ ---+ ---+ -------+| ?60-89 ?| ?Stage two ?| ? Decreased GFR ? + --+ --+ ------+| ?30-59 ?| ?Stage three ?| ? Stage three ? + --+ --+ ------+| ?15-29 ?| ?Stage four ? | ? Stage four ?+ ---+ ---+ -------+| ?<15 (or dialysis) ? ?| ?Stage five ? | ? Stage five ?+ ---+ ---+ -------+ *Each stage assumes the associated GFR level has been in effect for at least three months. ?Stages 1 to 5, with or without kidney disease, indicate chronic kidney disease. Notes: Determination of stages one and two (with eGFR >59mL/min/1.73 m2) requires estimation of kidney damage for at least three months as defined by structural or functional abnormalities of the kidney, manifested by either:Pathological abnormalities or Markers of kidney damage (including abnormalities in the composition of the blood or urine or abnormalities in imaging tests). Lab Interpretation Abnormal (test code = 08074-5) [facility] [id number] 13:24:46 Test Item Value Reference Range Interpretation Comments LDH (test code = 0963926748) 834 U/L 300-600 H Lab Interpretation (test code = Abnormal 68394-9) [facility] [id number] 12:12:51 Test Item Value Reference Range Interpretation Comments WBC (test code = See_Comment [Automated 9690-2) message] The sy stem which generated this result transmitted reference range : 4.30 - 11.10 10*3/?L. The reference range was not used to interpret this result as normal/abnormal . RBC (test code = See_Comment L [Automated 369-8) message] The sy stem which generated this result transmitted reference range : 3.93 - 5.25 10*6/?L. The reference range was not used to interpret this result as normal/abnormal . HGB (test code = 12.2 g/dL 11.6-15.0 718-7) HCT (test code = 36.1 % 35.7-45.2 4544-3) MCV (test code = 92.6 fL 80.6-95.5 787-2) MCH (test code = 31.3 pg 25.9-32.8 785-6) MCHC (test code = 33.8 g/dL 31.6-35.1 786-4) RDW-SD (test code = 45.5 fL 39.0-49.9 91683-1) RDW-CV (test code = 13.4 % 12.0-15.5 788-0) PLT (test code = See_Comment [Automated 777-3) message] The sy stem which generated this result transmitted reference range : 166 - 358 10*3/ ?L. The reference r ariel was not used to interpret this result as normal/abnormal . MPV (test code = 9.0 fL 9.5-12.9 L 24025-1) NRBC/100 WBC (test See_Comment [Automat ed code = 1733650889) message] The system which generated this result transmitted reference range : 0.0 - 10.0 /100 WBCs. The refer ence range was not u sed to interpret th is result as normal/abnormal . NRBC x10^3 (test code <0.01 See_Comment [Auto mated = 6268968016) message] The s ystem which generated this result transmitted reference range : 10*3/?L. The reference range was not used to interpret this result as normal/abnormal . GRAN MAT (NEUT) % 71.1 % (test code = 770-8) IMM GRAN % (test code 0.40 % = 8174963329) LYMPH % (test code = 21.0 % 736-9) MONO % (test code = 7.3 % 5905-5) EOS % (test code = 0.0 % 713-8) BASO % (test code = 0.2 % 706-2) GRAN MAT x10^3(ANC) 3.70 10*3/uL 1.88-7.09 (test code = 6309687407) IMM GRAN x10^3 (test <0.03 0.00-0.06 code = 0974308268) LYMPH x10^3 (test code 1.09 10*3/uL 1.32-3.29 L = 731-0) MONO x10^3 (test code 0.38 10*3/uL 0.33-0.92 = 742-7) EOS x10^3 (test code = <0.03 0.03-0.39 L 711-2) BASO x10^3 (test code <0.03 0.01-0.07 = 704-7) Lab Interpretation Abnormal (test code = 20191-7) [facility] GLUCOSE (AUTOMATED)2021-12-04 06:12:06 Test Item Value Reference Range Interpretation Comments POCT GLU (test code = 1946079115) 233 mg/dL 70-110 H Lab Interpretation (test code = Abnormal 95271-3) [facility] GLUCOSE (AUTOMATED)2021-12-03 22:34:15 Test Item Value Reference Range Interpretation Comments POCT GLU (test code = 4977199652) 129 mg/dL 70-110 H Lab Interpretation (test code = Abnormal 97255-3) [facility] GLUCOSE (AUTOMATED)2021-12-03 17:29:57 Test Item Value Reference Range Interpretation Comments POCT GLU (test code = 3381076159) 132 mg/dL 70-110 H Lab Interpretation (test code = Abnormal 58206-6) [facility] GLUCOSE (AUTOMATED)2021-12-03 13:41:53 Test Item Value Reference Range Interpretation Comments POCT GLU (test code = 8197837106) 281 mg/dL 70-110 H Lab Interpretation (test code = Abnormal 70491-6) [facility] 11:49:59 Test Item Value Reference Range Interpretation Comments MAGNESIUM (test code = 8819359494) 2.1 mg/dL 1.7-2.4 Lab Interpretation (test code = Normal 83420-5) [facility]. METABOLIC PANEL (33881)2021-12-03 11:49:39 Test Item Value Reference Range Interpretation Comments NA (test code = 142 mmol/L 135-145 8475507482) K (test code = 3.8 mmol/L 3.5-5.0 2627010257) CL (test code = 114 mmol/L 98-108 H 7709285341) CO2 TOTAL (test code = 19 mmol/L 23-31 L 2314414009) AGAP (test code = 2-16 5198077421) BUN (test code = 34 mg/dL 7-23 H 6723650922) GLUCOSE (test code = 227 mg/dL 70-110 H 0008781490) CREATININE (test code = 1.01 mg/dL 0.50-1.04 4809810671) TOTAL BILI (test code = 0.4 mg/dL 0.1-1.6 5530562395) CALCIUM (test code = 7.7 mg/dL 8.6-10.6 L 5150492505) T PROTEIN (test code = 6.0 g/dL 6.3-8.2 L 4680656429) ALBUMIN (test code = 3.3 g/dL 3.5-5.0 L 2624036779) ALK PHOS (test code = 65 U/L 34-122 8138546065) ALTv (test code = 156 U/L 5-35 H 1742-6) AST(SGOT) (test code = 252 U/L 13-40 H 8177893862) eGFR (test code = mL/min/1.73m2 8369656859) JAYMIE (test code = JAYMIE) Association of Glomerular Filtration Rate (GFR) and Staging of Kidney Disease* + --+ --+ ------+| GFR (mL/min/1.73 m2) ?| With Kidney Damage ?| ?Without Kidney Damage+ --------+ --------+ +| ?>90 ?| ?Stage one ?| ? Normal ?+ ---+ ---+ -------+| ?60-89 ?| ?Stage two ?| ? Decreased GFR ? + --+ --+ ------+| ?30-59 ?| ?Stage three ?| ? Stage three ? + --+ --+ ------+| ?15-29 ?| ?Stage four ? | ? Stage four ?+ ---+ ---+ -------+| ?<15 (or dialysis) ? ?| ?Stage five ? | ? Stage five ?+ ---+ ---+ -------+ *Each stage assumes the associated GFR level has been in effect for at least three months. ?Stages 1 to 5, with or without kidney disease, indicate chronic kidney disease. Notes: Determination of stages one and two (with eGFR >59mL/min/1.73 m2) requires estimation of kidney damage for at least three months as defined by structural or functional abnormalities of the kidney, manifested by either:Pathological abnormalities or Markers of kidney damage (including abnormalities in the composition of the blood or urine or abnormalities in imaging tests). Lab Interpretation Abnormal (test code = 07983-6) [facility] 11:49:39 Test Item Value Reference Range Interpretation Comments PHOSPHORUS (test code = 9384834042) 3.6 mg/dL 2.5-5.0 Lab Interpretation (test code = Normal 65133-7) [facility] [id number] 11:15:53 Test Item Value Reference Range Interpretation Comments WBC (test code = See_Comment L [Automated 6690-2) message] The sy stem which generated this result transmitted reference range : 4.30 - 11.10 10*3/?L. The reference range was not used to interpret this result as normal/abnormal . RBC (test code = See_Comment L [Automated 789-8) message] The sy stem which generated this result transmitted reference range : 3.93 - 5.25 10*6/?L. The reference range was not used to interpret this result as normal/abnormal . HGB (test code = 10.3 g/dL 11.6-15.0 L 718-7) HCT (test code = 30.7 % 35.7-45.2 L 4544-3) MCV (test code = 91.9 fL 80.6-95.5 787-2) MCH (test code = 30.8 pg 25.9-32.8 785-6) MCHC (test code = 33.6 g/dL 31.6-35.1 786-4) RDW-SD (test code = 45.7 fL 39.0-49.9 55801-7) RDW-CV (test code = 13.4 % 12.0-15.5 788-0) PLT (test code = See_Comment L [Automated 777-3) message] The sy stem which generated this result transmitted reference range : 166 - 358 10*3/ ?L. The reference r ariel was not used to interpret this result as normal/abnormal . MPV (test code = 9.1 fL 9.5-12.9 L 90549-1) NRBC/100 WBC (test See_Comment [Automat ed code = 8649380526) message] The system which generated this result transmitted reference range : 0.0 - 10.0 /100 WBCs. The refer ence range was not u sed to interpret th is result as normal/abnormal . NRBC x10^3 (test code <0.01 See_Comment [Auto mated = 6242407835) message] The s ystem which generated this result transmitted reference range : 10*3/?L. The reference range was not used to interpret this result as normal/abnormal . GRAN MAT (NEUT) % 76.3 % (test code = 770-8) IMM GRAN % (test code 0.70 % = 9521501053) LYMPH % (test code = 15.3 % 736-9) MONO % (test code = 7.7 % 5905-5) EOS % (test code = 0.0 % 713-8) BASO % (test code = 0.0 % 706-2) GRAN MAT x10^3(ANC) 3.19 10*3/uL 1.88-7.09 (test code = 0856915577) IMM GRAN x10^3 (test 0.03 10*3/uL 0.00-0.06 code = 7027544532) LYMPH x10^3 (test code 0.64 10*3/uL 1.32-3.29 L = 731-0) MONO x10^3 (test code 0.32 10*3/uL 0.33-0.92 L = 742-7) EOS x10^3 (test code = <0.03 0.03-0.39 L 711-2) BASO x10^3 (test code <0.03 0.01-0.07 = 704-7) Lab Interpretation Abnormal (test code = 38302-2) [facility] GLUCOSE (AUTOMATED)2021-12-02 23:15:28 Test Item Value Reference Range Interpretation Comments POCT GLU (test code = 8765026305) 82 mg/dL 70-110 Lab Interpretation (test code = Normal 80372-1) [facility] GLUCOSE (AUTOMATED)2021-12-02 18:20:54 Test Item Value Reference Range Interpretation Comments POCT GLU (test code = 8556123677) 280 mg/dL 70-110 H Lab Interpretation (test code = Abnormal 13386-2) [facility] [id number] 17:09:24 Test Item Value Reference Range Interpretation Comments CRP (test code = 0959954790) 4.7 mg/dL <0.8 H Lab Interpretation (test code = Abnormal 19947-2) [facility] GLUCOSE (AUTOMATED)2021-12-02 14:36:41 Test Item Value Reference Range Interpretation Comments POCT GLU (test code = 5444997729) 355 mg/dL 70-110 H Lab Interpretation (test code = Abnormal 00525-3) [facility]. METABOLIC PANEL (84083)2021-12-02 11:03:30 Test Item Value Reference Range Interpretation Comments NA (test code = 142 mmol/L 135-145 9531689972) K (test code = 4.1 mmol/L 3.5-5.0 8468901972) CL (test code = 113 mmol/L 98-108 H 5800003065) CO2 TOTAL (test code = 18 mmol/L 23-31 L 0156489594) AGAP (test code = 2-16 0643062647) BUN (test code = 27 mg/dL 7-23 H 0124208622) GLUCOSE (test code = 248 mg/dL 70-110 H 9194963496) CREATININE (test code = 1.00 mg/dL 0.50-1.04 7721363429) TOTAL BILI (test code = 0.5 mg/dL 0.1-1.1 8885909868) CALCIUM (test code = 8.1 mg/dL 8.6-10.6 L 8424471461) T PROTEIN (test code = 6.8 g/dL 6.3-8.2 9108885040) ALBUMIN (test code = 3.8 g/dL 3.5-5.0 1651111435) ALK PHOS (test code = 71 U/L 34-122 2126701390) ALTv (test code = 121 U/L 5-35 H 1742-6) AST(SGOT) (test code = 199 U/L 13-40 H 9015741740) eGFR (test code = mL/min/1.73m2 6083708067) JAYMIE (test code = JAYMIE) Association of Glomerular Filtration Rate (GFR) and Staging of Kidney Disease* + --+ --+ ------+| GFR (mL/min/1.73 m2) ?| With Kidney Damage ?| ?Without Kidney Damage+ --------+ --------+ +| ?>90 ?| ?Stage one ?| ? Normal ?+ ---+ ---+ -------+| ?60-89 ?| ?Stage two ?| ? Decreased GFR ? + --+ --+ ------+| ?30-59 ?| ?Stage three ?| ? Stage three ? + --+ --+ ------+| ?15-29 ?| ?Stage four ? | ? Stage four ?+ ---+ ---+ -------+| ?<15 (or dialysis) ? ?| ?Stage five ? | ? Stage five ?+ ---+ ---+ -------+ *Each stage assumes the associated GFR level has been in effect for at least three months. ?Stages 1 to 5, with or without kidney disease, indicate chronic kidney disease. Notes: Determination of stages one and two (with eGFR >59mL/min/1.73 m2) requires estimation of kidney damage for at least three months as defined by structural or functional abnormalities of the kidney, manifested by either:Pathological abnormalities or Markers of kidney damage (including abnormalities in the composition of the blood or urine or abnormalities in imaging tests). Lab Interpretation Abnormal (test code = 69072-9) [facility] [id number] 10:46:14 Test Item Value Reference Range Interpretation Comments LDH (test code = 6558164619) 839 U/L 300-600 H Lab Interpretation (test code = Abnormal 35065-7) [facility] WITH [id number] 10:42:52 Test Item Value Reference Range Interpretation Comments WBC (test code = See_Comment L [Automated 6690-2) message] The sy stem which generated this result transmitted reference range : 4.30 - 11.10 10*3/?L. The reference range was not used to interpret this result as normal/abnormal . RBC (test code = See_Comment L [Automated 789-8) message] The sy stem which generated this result transmitted reference range : 3.93 - 5.25 10*6/?L. The reference range was not used to interpret this result as normal/abnormal . HGB (test code = 11.4 g/dL 11.6-15.0 L 718-7) HCT (test code = 33.5 % 35.7-45.2 L 4544-3) MCV (test code = 92.3 fL 80.6-95.5 787-2) MCH (test code = 31.4 pg 25.9-32.8 785-6) MCHC (test code = 34.0 g/dL 31.6-35.1 786-4) RDW-SD (test code = 44.9 fL 39.0-49.9 28136-0) RDW-CV (test code = 13.2 % 12.0-15.5 788-0) PLT (test code = See_Comment L [Automated 777-3) message] The sy stem which generated this result transmitted reference range : 166 - 358 10*3/ ?L. The reference r ariel was not used to interpret this result as normal/abnormal . MPV (test code = 9.3 fL 9.5-12.9 L 14485-6) NRBC/100 WBC (test See_Comment [Automat ed code = 8316578422) message] The system which generated this result transmitted reference range : 0.0 - 10.0 /100 WBCs. The refer ence range was not u sed to interpret th is result as normal/abnormal . NRBC x10^3 (test code <0.01 See_Comment [Auto mated = 4254763631) message] The s ystem which generated this result transmitted reference range : 10*3/?L. The reference range was not used to interpret this result as normal/abnormal . GRAN MAT (NEUT) % 74.0 % (test code = 770-8) IMM GRAN % (test code 0.30 % = 9603748118) LYMPH % (test code = 18.3 % 736-9) MONO % (test code = 7.4 % 5905-5) EOS % (test code = 0.0 % 713-8) BASO % (test code = 0.0 % 706-2) GRAN MAT x10^3(ANC) 2.71 10*3/uL 1.88-7.09 (test code = 6560267925) IMM GRAN x10^3 (test <0.03 0.00-0.06 code = 9224243096) LYMPH x10^3 (test code 0.67 10*3/uL 1.32-3.29 L = 731-0) MONO x10^3 (test code 0.27 10*3/uL 0.33-0.92 L = 742-7) EOS x10^3 (test code = <0.03 0.03-0.39 L 711-2) BASO x10^3 (test code <0.03 0.01-0.07 = 704-7) Lab Interpretation Abnormal (test code = 82581-5) [facility] GLUCOSE (AUTOMATED)2021-12-02 02:51:42 Test Item Value Reference Range Interpretation Comments POCT GLU (test code = 9880213739) 280 mg/dL 70-110 H Lab Interpretation (test code = Abnormal 52078-9) [facility] GLUCOSE (AUTOMATED)2021-12-01 23:10:07 Test Item Value Reference Range Interpretation Comments POCT GLU (test code = 4072021481) 250 mg/dL 70-110 H Lab Interpretation (test code = Abnormal 71259-5) [facility] GLUCOSE (AUTOMATED)2021-12-01 17:47:25 Test Item Value Reference Range Interpretation Comments POCT GLU (test code = 5785421952) 252 mg/dL 70-110 H Lab Interpretation (test code = Abnormal 64757-7) [facility] GLUCOSE (AUTOMATED)2021-12-01 17:32:32 Test Item Value Reference Range Interpretation Comments POCT GLU (test code = 0033950391) 398 mg/dL 70-110 H Lab Interpretation (test code = Abnormal 93039-3) [facility] GLUCOSE (AUTOMATED)2021-12-01 14:09:49 Test Item Value Reference Range Interpretation Comments POCT GLU (test code = 1579490698) 409 mg/dL 70-110 H Lab Interpretation (test code = Abnormal 02292-4) [facility] with [id number] 13:34:27 Test Item Value Reference Range Interpretation Comments WBC (test code = See_Comment LL [Automated 4790-2) message] The sy stem which generated this result transmitted reference range : 4.30 - 11.10 10*3/?L. The reference range was not used to interpret this result as normal/abnormal . RBC (test code = See_Comment L [Automated 039-8) message] The sy stem which generated this result transmitted reference range : 3.93 - 5.25 10*6/?L. The reference range was not used to interpret this result as normal/abnormal . HGB (test code = 11.9 g/dL 11.6-15.0 718-7) HCT (test code = 36.4 % 35.7-45.2 4544-3) MCV (test code = 94.8 fL 80.6-95.5 787-2) MCH (test code = 31.0 pg 25.9-32.8 785-6) MCHC (test code = 32.7 g/dL 31.6-35.1 786-4) RDW-SD (test code = 45.7 fL 39.0-49.9 04906-1) RDW-CV (test code = 13.2 % 12.0-15.5 788-0) PLT (test code = See_Comment L [Automated 777-3) message] The sy stem which generated this result transmitted reference range : 166 - 358 10*3/ ?L. The reference r ariel was not used to interpret this result as normal/abnormal . MPV (test code = 9.0 fL 9.5-12.9 L 66042-5) NRBC/100 WBC (test See_Comment [Automat ed code = 6789035557) message] The system which generated this result transmitted reference range : 0.0 - 10.0 /100 WBCs. The refer ence range was not u sed to interpret th is result as normal/abnormal . NRBC x10^3 (test code <0.01 See_Comment [Auto mated = 1085967640) message] The s ystem which generated this result transmitted reference range : 10*3/?L. The reference range was not used to interpret this result as normal/abnormal . GRAN MAT (NEUT) % 63.8 % (test code = 770-8) IMM GRAN % (test code 0.00 % = 8925624626) LYMPH % (test code = 32.2 % 736-9) MONO % (test code = 4.0 % 5905-5) EOS % (test code = 0.0 % 713-8) BASO % (test code = 0.0 % 706-2) GRAN MAT x10^3(ANC) 0.95 10*3/uL 1.88-7.09 L (test code = 6376429462) IMM GRAN x10^3 (test <0.03 0.00-0.06 code = 0785993894) LYMPH x10^3 (test code 0.48 10*3/uL 1.32-3.29 L = 731-0) MONO x10^3 (test code 0.06 10*3/uL 0.33-0.92 L = 742-7) EOS x10^3 (test code = <0.03 0.03-0.39 L 711-2) BASO x10^3 (test code <0.03 0.01-0.07 = 704-7) ROULEAUX (test code = Present See_Comment A [Auto mated 7797-4) message] The sy stem which generated this result transmitted reference range : (none). The reference range was not used to interpret this result as normal/abnormal . BANDS (test code = Increased A 2250481315) LG GRAN LYMPHS (test Rare Rare code = 2651283375) REACT LYMPHS (test Rare code = 4347108964) GIANT PLATELETS (test Present See_Comment A [Auto mated code = 5908-9) message] The system which generated this result transmitted reference range : (none). The reference range was not used to interpret this result as normal/abnormal . Lab Interpretation Abnormal (test code = 82693-3) [facility] Metabolic Panel (NA, K, CL, CO2, GLUCOSE, BUN, CREATININE, CA)2021-12-01 12:35:54 Test Item Value Reference Range Interpretation Comments NA (test code = 136 mmol/L 135-145 2617814927) K (test code = 5.4 mmol/L 3.5-5.0 H 8679785387) CL (test code = 109 mmol/L 98-108 H 1519742680) CO2 TOTAL (test code = 15 mmol/L 23-31 L 0404144837) AGAP (test code = 2-16 3841234887) BUN (test code = 24 mg/dL 7-23 H 8805952152) GLUCOSE (test code = 374 mg/dL 70-110 H 9642428937) CREATININE (test code = 0.94 mg/dL 0.50-1.04 8341296962) CALCIUM (test code = 8.0 mg/dL 8.6-10.6 L 5342082528) eGFR (test code = mL/min/1.73m2 6507694557) JAYMIE (test code = JAYMIE) Association of Glomerular Filtration Rate (GFR) and Staging of Kidney Disease* + --+ --+ ------+| GFR (mL/min/1.73 m2) ?| With Kidney Damage ?| ?Without Kidney Damage+ --------+ --------+ +| ?>90 ?| ?Stage one ?| ? Normal ?+ ---+ ---+ -------+| ?60-89 ?| ?Stage two ?| ? Decreased GFR ? + --+ --+ ------+| ?30-59 ?| ?Stage three ?| ? Stage three ? + --+ --+ ------+| ?15-29 ?| ?Stage four ? | ? Stage four ?+ ---+ ---+ -------+| ?<15 (or dialysis) ? ?| ?Stage five ? | ? Stage five ?+ ---+ ---+ -------+ *Each stage assumes the associated GFR level has been in effect for at least three months. ?Stages 1 to 5, with or without kidney disease, indicate chronic kidney disease. Notes: Determination of stages one and two (with eGFR >59mL/min/1.73 m2) requires estimation of kidney damage for at least three months as defined by structural or functional abnormalities of the kidney, manifested by either:Pathological abnormalities or Markers of kidney damage (including abnormalities in the composition of the blood or urine or abnormalities in imaging tests). Lab Interpretation Abnormal (test code = 35507-3) [facility] (ALB,T.PRO,BILI T,BU/BC,ALT,AST,ALK PHOS)2021-12-01 12:35:34 Test Item Value Reference Range Interpretation Comments TOTAL BILI (test code = 4781242044) 0.9 mg/dL 0.1-1.1 BILI UNCON (test code = 5021877739) 0.2 mg/dL 0.1-1.1 BILI CONJ (test code = 0924493224) 0.0 mg/dL 0.0-0.3 T PROTEIN (test code = 1505122426) 7.3 g/dL 6.3-8.2 ALBUMIN (test code = 3633157416) 4.0 g/dL 3.5-5.0 ALK PHOS (test code = 3736561396) 53 U/L 34-122 ALTv (test code = 1742-6) 65 U/L 5-35 H AST(SGOT) (test code = 6930703104) 119 U/L 13-40 H Lab Interpretation (test code = Abnormal 37367-9) [facility]2021-12-01 02:48:52 Test Item Value Reference Range Interpretation Comments HGB A1C (test code = 7.9 % 4.0-5.7 H 4548-4) JAYMIE (test code = JAYMIE) Reference RangesNormal: <5.7%Prediabetes: 5.7 - 6.4%Diabetes: > 6.5% Lab Interpretation (test Abnormal code = 01373-8) [facility] (26979)2021-11-30 22:17:39 Test Item Value Reference Range Interpretation Comments NA (test code = 133 mmol/L 135-145 L 2103715802) K (test code = 5.0 mmol/L 3.5-5.0 0641471362) CL (test code = 107 mmol/L 98-108 2635161070) CO2 TOTAL (test code = 16 mmol/L 23-31 L 6646678085) AGAP (test code = 2-16 8091628019) BUN (test code = 31 mg/dL 7-23 H 6547113166) GLUCOSE (test code = 265 mg/dL 70-110 H 6556752999) CREATININE (test code = 1.25 mg/dL 0.50-1.04 H 1608214210) TOTAL BILI (test code = 0.7 mg/dL 0.1-1.3 5903475041) CALCIUM (test code = 7.7 mg/dL 8.6-10.6 L 3191115922) T PROTEIN (test code = 6.5 g/dL 6.3-8.2 8234157227) ALBUMIN (test code = 3.9 g/dL 3.5-5.0 6103683040) ALK PHOS (test code = 59 U/L 34-122 2532759268) ALTv (test code = 54 U/L 5-35 H 1742-6) AST(SGOT) (test code = 102 U/L 13-40 H 6603796507) eGFR (test code = mL/min/1.73m2 7604985607) JAYMIE (test code = JAYMIE) Association of Glomerular Filtration Rate (GFR) and Staging of Kidney Disease* + --+ --+ ------+| GFR (mL/min/1.73 m2) ?| With Kidney Damage ?| ?Without Kidney Damage+ --------+ --------+ +| ?>90 ?| ?Stage one ?| ? Normal ?+ ---+ ---+ -------+| ?60-89 ?| ?Stage two ?| ? Decreased GFR ? + --+ --+ ------+| ?30-59 ?| ?Stage three ?| ? Stage three ? + --+ --+ ------+| ?15-29 ?| ?Stage four ? | ? Stage four ?+ ---+ ---+ -------+| ?<15 (or dialysis) ? ?| ?Stage five ? | ? Stage five ?+ ---+ ---+ -------+ *Each stage assumes the associated GFR level has been in effect for at least three months. ?Stages 1 to 5, with or without kidney disease, indicate chronic kidney disease. Notes: Determination of stages one and two (with eGFR >59mL/min/1.73 m2) requires estimation of kidney damage for at least three months as defined by structural or functional abnormalities of the kidney, manifested by either:Pathological abnormalities or Markers of kidney damage (including abnormalities in the composition of the blood or urine or abnormalities in imaging tests). Lab Interpretation Abnormal (test code = 44257-6) [facility] [id number] 21:26:53 Test Item Value Reference Interpretation Comments Range TROPONIN I (test 0.004 ng/mL See_Comment [Automated code = 9964247162) message] The system which generated this result transmitted reference range : <=0.034. The reference range was not used to interpret this result as normal/abnormal . JAYMIE (test code = Reference (Normal) JAYMIE) Range (defined by the 99th percentile reference limit): <= 0.034 ng/mL Note: Cardiac troponin begins to rise 3-4 hours after the onset of ischemia. Repeat in 4-6 hours if the sample was drawn within 3-4 hours of the onset of the symptom and found normal. Diagnosis of myocardial injury is made with acute changes in cTn concentrations with at least one serial sample above the 99th percentile upper reference limit (URL), taken together with the patient's clinical presentation. Biotin has been reported to cause a negative bias, interpret results relative to patient's use of biotin. Lab Interpretation Normal (test code = 96215-0) [facility] [id number] 21:23:35 Test Item Value Reference Range Interpretation Comments NT-proBNP (test code 82 pg/mL See_Comment [Autom ated = 0845714774) message] The system which generated this result transmitted reference range : <=450. The reference range was not used to interpret this result as normal/abnormal . JAYMIE (test code = JAYMIE) Biotin has been reported to cause a negative bias, interpret results relative to patient's use of biotin. Lab Interpretation Normal (test code = 07538-8) [facility] / [id number] 21:11:10 Test Item Value Reference Range Interpretation Comments PROTIME PATIENT (test See_Comment [Auto mated message] code = 5964-2) The system wh ich generated this result transmitted ref erence range: 12.0 - 1 4.7 Seconds. The re ference range was not u sed to interpret this result as normal/abnor mal. INR (test code = 6301-6) Nor mal INR <1.1; Warfarin Therap eutic range 2.0 to 3. 0 or 2.5 to 3.5, dep ending upon the indica tions. Lab Interpretation (test Normal code = 16451-6) [facility] WITH [id number] 21:02:25 Test Item Value Reference Range Interpretation Comments WBC (test code = See_Comment [Automated 8890-2) message] The sy stem which generated this result transmitted reference range : 4.30 - 11.10 10*3/?L. The reference range was not used to interpret this result as normal/abnormal . RBC (test code = See_Comment [Automated 549-8) message] The sy stem which generated this result transmitted reference range : 3.93 - 5.25 10*6/?L. The reference range was not used to interpret this result as normal/abnormal . HGB (test code = 13.3 g/dL 11.6-15.0 718-7) HCT (test code = 41.1 % 35.7-45.2 4544-3) MCV (test code = 96.3 fL 80.6-95.5 H 787-2) MCH (test code = 31.1 pg 25.9-32.8 785-6) MCHC (test code = 32.4 g/dL 31.6-35.1 786-4) RDW-SD (test code = 48.7 fL 39.0-49.9 94625-8) RDW-CV (test code = 13.8 % 12.0-15.5 788-0) PLT (test code = See_Comment L [Automated 777-3) message] The sy stem which generated this result transmitted reference range : 166 - 358 10*3/ ?L. The reference r ariel was not used to interpret this result as normal/abnormal . MPV (test code = 9.1 fL 9.5-12.9 L 16265-9) NRBC/100 WBC (test See_Comment [Automat ed code = 4244598359) message] The system which generated this result transmitted reference range : 0.0 - 10.0 /100 WBCs. The refer ence range was not u sed to interpret th is result as normal/abnormal . NRBC x10^3 (test code <0.01 See_Comment [Auto mated = 0693936569) message] The s ystem which generated this result transmitted reference range : 10*3/?L. The reference range was not used to interpret this result as normal/abnormal . GRAN MAT (NEUT) % 60.7 % (test code = 770-8) IMM GRAN % (test code 0.50 % = 8905207223) LYMPH % (test code = 30.5 % 736-9) MONO % (test code = 7.9 % 5905-5) EOS % (test code = 0.2 % 713-8) BASO % (test code = 0.2 % 706-2) GRAN MAT x10^3(ANC) 2.63 10*3/uL 1.88-7.09 (test code = 3536904513) IMM GRAN x10^3 (test <0.03 0.00-0.06 code = 4072441741) LYMPH x10^3 (test code 1.32 10*3/uL 1.32-3.29 = 731-0) MONO x10^3 (test code 0.34 10*3/uL 0.33-0.92 = 742-7) EOS x10^3 (test code = <0.03 0.03-0.39 L 711-2) BASO x10^3 (test code <0.03 0.01-0.07 = 704-7) Lab Interpretation Abnormal (test code = 05907-6) [facility] 10:22:00 Test Item Value Reference Range Interpretation Comments GLUBED (test code = GLUBED) 139 mg/dL 60-125 H [id number] 09:53:00 Test Item Value Reference Range Interpretation Comments GLUBED (test code = GLUBED) 125 mg/dL 60-125 N - XR FLUORO FOR SPINE [id number] 09:38:00 Patient Name: RONA DEAN Unit No: [id number] EXAMS: CPT CODE: [id number] XR FLUORO FOR SPINE INJ 78201 LUMBAR TRANSFORAMINAL INJECTION REFERRING PHYSICIAN: PREOPERATIVE DIAGNOSIS: Degenerative Lumbar Disc Disease. POSTOPERATIVE DIAGNOSIS: Rightlumbar radiculopathy PROCEDURES PERFORMED 1. Fluoroscopically guided needle localization of the right L4, right L5 spinal nerve/nerves with transforaminal epidural steroid injection/injections. 2. Transforaminal epidurogram/epidurograms at right L4, right L5. FINDINGS: Poor filling right L4, right L5. Concordant provocation right L5 hip, right L4 back. Pain relief-100%. ANTIBIOTIC: Cefazolin ESTIMATEDBLOOD LOSS: Minimal ANESTHESIA: (TIVA )Total intravenous anesthetic (patient intolerant to sedatives and hypnotics) COMPLICATIONS: None DETAILS OF PROCEDURE: After obtaining stable vital signs, informed consent and IV access, with no known contraindications to proceeding, the patient was taken to the fluoroscopy suite and placed in a prone position with all extremities padded and appropriate monitors placed. A sterile prep and dr ape was performed over the lumbosacral spine. Using fluoroscopic visualization at eachlevel the insertion site was marked for a paravertebral approach to the foramen. Using standard technique, a 25 gauge needle was advanced to the base of the pedicle. In AP view, final positioning was obtained outside the 6 on the clock position on the pedicle. Then, 1 ml of Isovue-300 contrast was injected to produce the epidurograms. No paresthesias were elicited with needle insertion or injection and there were no signs of intravascular or intrathecal uptake. Then, with 1 ml of 4% lidocaine and 10 mg of triamcinolone was injected incrementally with frequent negative aspirations. There were no signs of intravascular or intrathecal uptake. Each subsequent level was done using the same technique and medications. The patient's vital signs remained stable. The patient was taken to the PACU in good condition. at 0938 Reported and signed by: Ramses Escamilla M.D. CC: Technologist: Veronica Ken(R) Transcribed D/ (0975) [facility] NAME: RONA DEAN [address] [facility] [address] PHYS: Ramses Hope MD [place] [address] :1940 AGE: 79 SEX: F LOC: [place] PHONE #: [phone] EXAM DATE: 09/01/2019 [place]: [facility] [place] #: [phone] RAD #: D/C DT PAGE 1 Signed Report Patient Name: RONA DEAN Unit No: [id number] EXAMS: CPT CODE: [id number] XR FLUORO FOR SPINE INJ 53557 <Continued> Orig Print D/T: S: 09/01/2019 (0941) [facility] NAME: RONA DEAN [address] [facility] PHYS: Ramses Hope MD [place], [place] [address] : 1940 AGE: 79 SEX: F LOC: [place] PHONE #: [phone] EXAM DATE: 09/01/2019 STATUS: [facility] [place] #: [phone] RAD #: D/C DT PAGE 2 Signed Report- XR FLUORO FOR SPINE [id number] 11:11:00 Patient Name: RONA DEAN Unit No: [id number] EXAMS: CPT CODE: [id number] XR FLUORO FOR SPINE INJ 63351 LUMBAR TRANSFORAMINAL INJECTION AND LUMBAR FACET BLOCK REFERRING PHYSICIAN: PREOPERATIVE DIAGNOSIS: 1. Degenerative Lumbar Disc Disease. 2. Lumbar Facet Arthropathy POSTOPERATIVE DIAGNOSIS: Lumbar spondylosis without radiculopathy, lumbar radiculopathy PROCEDURES PERFORMED Fluor oscopically guided needle localization of the right L4, right L5 with transforaminal epidural steroid injections 2. Transforaminal epidurogram/epidurograms at right L4, right L5. 3. Fluoroscopic guided injections of the right L4-5, right L5-S1 intra-articularfacets. 4. Arthrograms of the right L4-5, right L5-S1 lumbar facets FINDINGS: Concordant provocation right L4 leg, right L5 hip 100 percent relief ANTIBIOTIC: Cefazolin ESTIMATED BLOOD LOSS: Minimal ANESTHESIA: (TIVA) Total intravenous anesthetic (patient intolerant to sedatives and hypnotics) COMPLICATIO NS: None DETAILS OF PROCEDURE: After obtaining stable vital signs, informed consent and IV access, with no known contraindications to proceeding, the patient was taken to the fluoroscopy suite and placed in a prone position with all extremities padded and appropriate monitors placed. A sterile prep and drape was performed over the lumbosacral spine. Using fluoroscopic visualization at each level the insertion site was marked for a paravertebral approach to the foramen. Using standard technique, a 25 gauge needle was advanced to the base of the pedicle. In AP view, final positioning was obtained outside the 6 o clock position on the pedicle. Then, 1 ml of Isovue-300 contrast was injected to produce the epidurograms. No paresthesias were elicited with needle insertion or injection and there were no signs of intravascular or intrathecal uptake. Then, with 1 ml of 4% lidocaine and 10 mg of triamcinolone was injected incrementally with frequent negative aspirations. There were no signs of intravascular or intrathecal uptake. The patient's vital signs remained stable. [facility] NAME: RONA DEAN [address] [facility] [address] PHYS: DOCUD - Doctor,Ramses Clifton MD [place], [place] [address] : 1940 AGE: 79 SEX: F LOC: [place] PHONE #: [phone] EXAM DATE: 06/16/2019 STATUS: [facility] [place] #: [phone] RAD #: D/C DT PAGE 1 Signed Report (CONTINUED) Patient Name: RONA DEAN Unit No: [id number] EXAMS: CPT CODE: [id number] XR FLUORO FOR SPINE INJ 38276 <Continued> The patient was placed in a prone position and the lumbosacral spine was prepped and draped in sterile fashion. Using standard technique, using fluoroscopic guidance, a 27-gauge needle was advanced into the facet joint and 2 mL of Isovue-300 contrast was injected to produce an arthrogram. Please see results of the arthrogram above. Then 2 mL was of 0.75 percent Marcaine and 2 mL of 4% lidocaine and 20 mg of triamcinolone was injected into the joint. Areas were cleaned of the prep and the patient was taken to the recovery room. at 1111 Reported and signed by: Ramses Escamilla M.D. CC: Technologist: Veronica Ken(R) Transcribed D/ (1111) [email or web address] [facility] NAME: RONA DEAN [address] [facility] [address] PHYS: Ramses Hope MD [place] [address] : 1940 AGE: 79 SEX: F LOC: [place] PHONE #: [phone] EXAM DATE: 06/16/2019 STATUS: [facility] [place] #:[phone] RAD #: D/C DT PAGE 2 Signed Report Patient Name: RONA DEAN Unit No: [id number] EXAMS: CPT CODE: [id number] XR FLUORO FOR SPINE INJ 76656 <Continued> Orig Print D/T: S: 06/16/2019 (1114) [facility]: RONA DEAN [address] [facility] [address] PHYS: Ramses Hope MD [place], [place] [address] : 1940 AGE: 79 SEX:F LOC: [place] PHONE #: [phone] EXAM DATE: 06/16/2019 STATUS: REG [facility] FAX #: [phone] RAD #: D/C DT PAGE 3 Signed ReportGLUBED 2019-06-16 10:21:00 Test Item Value Reference Range Interpretation Comments GLUBED (test code = GLUBED) 85 mg/dL 60-125 N"
--- NOTE | 2022-04-08 19:20 | RAD REPORT ---
EXAM DESCRIPTION: CT - Facial Bones W/ Mpr - 04/08/2022 6:56 pm CLINICAL HISTORY: Fall, left-sided facial trauma COMPARISON: None. TECHNIQUE: Axial 2 millimeter thick images of the facial bones were obtained with sagittal and coron al reconstruction imaging. All CT scans are performed using dose optimization technique as appropriate and may include automated exposure control or mA/KV adjustment according to patient size. FINDINGS: No mandible fracture. Condyles are normally positioned. Mastoid air cells and middle ears are clear. No skullbase fracture identified. Nondisplaced fractures present in the left maxilla nasal bone junction. No displacement. Small air-fl uid level is present in the left maxillary sinus. Left-side orbital floor fracture is present. Orbita l fat extends into new the orbital floor. Inferior rectus muscle stays within the confines of the orb it. Minimal amount of air is seen in the herniated portion of the orbital fat. There is additional pu nctate amounts of air in the orbit. This intraorbital air is extra Conal. Globes, extraocular muscles and optic nerve from normal appearance. No other facial bone fractures are seen. Contusion and edema are seen in the soft tissues overlying the maxilla and inferior orbit. Remaining paranasal sinuses are clear. Right globe and orbital contents are unremarkable. IMPRESSION: Left orbital floor fracture with no herniation of the inferior rectus muscle. Patient has intraorbital, extraconal air on the left related to the floor fracture. Nondisplaced fracture left-sided nasal bone junction with the maxilla.
--- NOTE | 2022-04-08 19:23 | RAD REPORT ---
EXAM DESCRIPTION: CT - CTHCSPWOC - 04/08/2022 6:56 pm CLINICAL HISTORY: fall, head and neck injury, left-sided facial trauma COMPARISON: Abdomen Pelvis W Contrast dated 02/21/2017No comparisons TECHNIQUE: Axial 5 mm thick images of the head were obtained. Axial 2 mm thick images of the cervic al spine were obtained with sagittal and coronal reconstruction images generated and reviewed. All CT scans are performed using dose optimization technique as appropriate and may include automated exposure control or mA/KV adjustment according to patient size. FINDINGS: No intracranial hemorrhage, mass, edema or acute intracranial finding. No suspicion for ac christy infarction. Mild for age atrophy and mild chronic ischemic change. Ventricles are in proportion. Mastoid air cells are clear. Facial bones, orbits and sinuses are separately detailed. No fracture of the cranial vault. Patient has normal variant hyperostosis frontalis interna. Cervical bodies are normal in height. Approximate 5 mm retrolisthesis C5 on C6 with significant C5-6 disc space narrowing, endplate spurring and uncovertebral joint hypertrophy. C6-7 uncovertebral joint hypertrophy is present as well. Both levels have bony foraminal encroachment. C6-7 disc space is als o narrowed to a lesser degree. No fracture or acute bony abnormality. Central canal detail is inhere ntly limited. No paraspinal mass or hematoma. IMPRESSION: No hemorrhage, edema or acute intracranial finding identifiable. Cervical spine degenerative changes are present, prominent at C5-6 and C6-7, without acute finding. Facial bones, orbits and sinuses are separately detailed.
[2022-04-08] MEDS ORDERED: HYDROCODONE/APAP 7.5/325 MG TAB ONE (20:20)
--- NOTE | 2022-04-08 20:31 | EDPHYS ---
Physician Documentation [facility] Name: Namita Goldstein Age: 81 yrs Sex: Female : 1940 Arrival Date: 04/08/2022 Time: 18:27 Bed 2 Private MD: ED Physician Gustavo Jc HPI: 04/08 19:00 This 81 yrs old Female presents to ER via Wheelchair with complaints of Fall Injury, cp Facial Injury, Vision Problem. 19:00 Details of fall: The patient fell from an upright position, while walking, and struck a cp concrete surface. Onset: The symptoms/episode began/occurred just prior to arrival. 19:00 Associated injuries: The patient sustained injury to the head, pain, swelling, cp tenderness. Historical: - Allergies: 18:34 Cipro; iw 18:34 Levaquin; iw - PMHx: 18:34 Diabetes - IDDM; Hypertension; Hypothyroidism; iw - Immunization history:: Adult Immunizations up to date. - Immunization history: Last tetanus immunization: - up to date. - Social history:: Smoking status: unknown. ROS: 19:05 Constitutional: Negative for body aches, chills, fever, poor PO intake. cp 19:05 Eyes: Positive for blurry vision, of the left eye, Negative for vision loss. cp 19:05 Neck: Negative for pain with movement, pain at rest, stiffness. 19:05 Cardiovascular: Negative for chest pain, palpitations. 19:05 Respiratory: Negative for cough, shortness of breath, wheezing. 19:05 Abdomen/GI: Negative for abdominal pain, vomiting, diarrhea, constipation. 19:05 Back: Negative for pain at rest, pain with movement. 19:05 MS/extremity: Negative for injury or acute deformity, decreased range of motion. 19:05 Neuro: Negative for altered mental status, dizziness, headache, loss of consciousness, syncope, weakness. 19:05 All other systems are negative. Exam: 19:15 Constitutional: The patient appears in no acute distress, alert, awake, non-toxic, well cp developed, well nourished, uncomfortable. 19:15 Head/face: Noted is ecchymosis, that is mild, of the nose and left cheek, swelling, that is mild, of the nose and left cheek, tenderness, that is moderate, of the nose and left cheek. 19:15 Eyes: Pupils: equal, round, and reactive to light and accomodation, Extraocular movements: intact throughout, Conjunctiva: normal, no exudate, no injection, Sclera: no appreciated abnormality, Lids and lashes: appear normal, bilaterally. 19:15 ENT: External ear(s): are unremarkable, Ear canal(s): are normal, clear, TM's: dullness, bilaterally, Nose: External nose: swelling is noted, Nasal septum: is midline, no septal hematoma appreciated, Nasal mucosa: edematous, bleeding, is noted from both nares, and is minimal, nasal drainage, is not appreciated, Mouth: Lips: moist, Oral mucosa: pink and intact, moist, Posterior pharynx: Airway: no evidence of obstruction, patent, Dental exam: fractured teeth are noted, specifically the upper right central Incisor (#8), pain, that is mild, specifically in the upper right central Incisor (#8), Voice: is normal. 19:15 Neck: C-spine: vertebral tenderness, is not appreciated, crepitus, is not appreciated, ROM/movement: is normal, is supple, without pain, no range of motions limitations. 19:15 Chest/axilla: Inspection: normal, Palpation: is normal, no crepitus, no tenderness. 19:15 Cardiovascular: Rate: normal, Rhythm: regular. 19:15 Respiratory: the patient does not display signs of respiratory distress, Respirations: normal, no use of accessory muscles, no retractions, labored breathing, is not present, Breath sounds: are clear throughout, no decreased breath sounds, no stridor, no wheezing. 19:15 Abdomen/GI: Inspection: abdomen appears normal, Palpation: abdomen is soft and non-tender, in all quadrants. 19:15 Back: pain, is absent, ROM is normal. 19:15 Musculoskeletal/extremity: Exam is negative for decreased range of motion, deformity. 19:15 Neuro: Orientation: to person, place \T\ time. Mentation: is normal, Motor: moves all fours, strength is normal, Sensation: no obvious gross deficits. Vital Signs: 18:33 BP 155 / 84; Pulse 84; Resp 16; Temp 98.0; Pulse Ox 98% on R/A; iw 20:44 BP 162 / 98; Pulse 84; Resp 16; Pulse Ox 99% on R/A; kd3 [place] Coma Score: 20:24 Eye Response: spontaneous(4). Verbal Response: oriented(5). Motor Response: obeys kd3 commands(6). Total: 15. Trauma Score (Adult): 20:24 Eye Response: spontaneous(1); Verbal Response: oriented(1); Motor Response: obeys kd3 commands(2); Systolic BP: > 89 mm Hg(4); Respiratory Rate: 10 to 29 per min(4); Scott Score: 15; Trauma Score: 12 MDM: 19:27 Patient medically screened. [facility] 20:30 Data reviewed: vital signs, nurses notes, radiologic studies, CT scan. cp 20:30 Counseling: I had a detailed discussion with the patient and/or guardian regarding: the cp historical points, exam findings, and any diagnostic results supporting the discharge/admit diagnosis, radiology results, the need for outpatient follow up, for definitive care, an ENT specialist, maxilla/facial surgery, to return to the emergency department if symptoms worsen or persist or if there are any questions or concerns that arise at home. 04/08 18:42 Order name: CT Head C Spine cp 04/08 18:42 Order name: CT Facial Bones W/O Con; Complete Time: 19:22 cp 04/08 18:46 Order name: Head C Spine Mpr Wo Con; Complete Time: 19:29 EDMS Administered Medications: 20:26 Not Given (Patient Refused): Hydrocodone-Acetaminophen (7.5 mg-325 mg) 1 tabs PO once; kd3 RASS on ADMIN: Combtv4, Very Agttd3, Agttd2, Rstlss1, AlertClm0, Drwsy-1, Lt Sdtn-2, Mod Sdtn-3, Dp Sdtn-4, UnArsble-5 20:38 Drug: Augmentin (Amoxicillin-Clavulanate) 875 mg Route: PO; kd3 20:44 Follow up: Response: No adverse reaction kd3 Disposition Summary: 04/08/22 20:30 Discharge Ordered Location: Home cp Problem: new cp Symptoms: have improved cp Condition: Stable cp Diagnosis - Fracture of orbital floor - left cp - Fracture of nasal bones cp - Fracture of tooth (traumatic) cp Followup: cp - With: Patricia Dominguez MD - When: 2 - 3 days - Reason: nasal bone fracture and left orbital floor fracture Followup: cp - With: Syd Maki DDS - When: 2 - 3 days - Reason: dental injuries Discharge Instructions: - Discharge Summary Sheet cp - Orbital Floor Fracture cp - Nasal Fracture cp - Tooth Injuries cp Forms: - Medication Reconciliation Form cp - Thank You Letter cp - Antibiotic Education cp - Prescription Opioid Use cp Prescriptions: - Augmentin 875-125 mg Oral Tablet - take 1 tablet by ORAL route every 12 hours for 10 days; 20 tablet; Refills: 0, cp Product Selection Permitted - Tylenol-Codeine #3 300 mg-30 mg Oral - take 2 tablet by ORAL route every 6-8 hours; 20 tablet; Refills: 0, Product cp Selection Permitted Signatures: Dispatcher [employer] EDMS Gustavo Jc MD MD cha Williams, Irene, RN RN iw Page, Corey, PA PA cp Doucette, Kyli, RN RN kd3 Chelsy Garcia PA PA sb3 Corrections: (The following items were deleted from the chart) 04/09 20:18 20:12 Constitutional: The patient appears in no acute distress, alert, awake, cp non-toxic, well developed, well nourished, uncomfortable, cp 20:18 20:12 Head/face: Noted is ecchymosis, that is mild, of the nose and left cheek, cp swelling, that is mild, of the nose and left cheek, tenderness, that is moderate, of the nose and left cheek, cp 20:18 20:12 Eyes: Pupils: equal, round, and reactive to light and accomodation, Extraocular cp movements: intact throughout, Conjunctiva: normal, no exudate, no injection, Sclera: no appreciated abnormality, Lids and lashes: appear normal, bilaterally, cp 20:18 20:12 ENT: External ear(s): are unremarkable, Ear canal(s): are normal, clear, TM's: cp dullness, bilaterally, Nose: External nose: swelling is noted, Nasal septum: is midline, no septal hematoma appreciated, Nasal mucosa: edematous, bleeding, is noted from both nares, and is minimal, nasal drainage, is not appreciated, Mouth: Lips: moist, Oral mucosa: pink and intact, moist, Posterior pharynx: Airway: no evidence of obstruction, patent, Dental exam: fractured teeth are noted, specifically the upper right central Incisor (#8), pain, that is mild, specifically in the upper right central Incisor (#8), Voice: is normal, cp 20:18 20:12 Neck: C-spine: vertebral tenderness, is not appreciated, crepitus, is not cp appreciated, ROM/movement: is normal, is supple, without pain, no range of motions limitations, cp 20:18 20:12 Chest/axilla: Inspection: normal, Palpation: is normal, no crepitus, no cp tenderness, cp 20:18 20:12 Cardiovascular: Rate: normal, Rhythm: regular, cp cp 20:18 20:12 Respiratory: the patient does not display signs of respiratory distress, cp Respirations: normal, no use of accessory muscles, no retractions, labored breathing, is not present, Breath sounds: are clear throughout, no decreased breath sounds, no stridor, no wheezing, cp 20:18 20:12 Abdomen/GI: Inspection: abdomen appears normal, Palpation: abdomen is soft and cp non-tender, in all quadrants, cp 20:18 20:12 Back: pain, is absent, ROM is normal, cp cp 20:18 20:12 Musculoskeletal/extremity: Exam is negative for decreased range of motion, cp deformity, cp 20:18 20:12 Neuro: Orientation: to person, place \T\ time. Mentation: is normal, Motor: moves cp all fours, strength is normal, Sensation: no obvious gross deficits, cp
--- NOTE | 2022-04-08 20:31 | ER ---
Nurse's Notes [facility] Name: Namita Goldstein Age: 81 yrs Sex: Female : 1940 Arrival Date: 04/08/2022 Time: 18:27 Bed 2 Private MD: Diagnosis: Fracture of orbital floor-left;Fracture of nasal bones;Fracture of tooth (traumatic) Presentation: 04/08 18:31 Chief complaint: Patient states: was walking outside, holding a [place], tripped over water iw hose , hit face on ground, has bruising, swelling to nose, teeth are loose, is having blurry vision in left eye , is on eliquis blood thinner , denies LOC. Care prior to arrival: None. 18:31 Acuity: MARIA ANTONIA 2 iw 18:31 Method Of Arrival: Wheelchair iw 20:25 Coronavirus screen: Vaccine status: Patient reports receiving the 2nd dose of the covid kd3 vaccine. Ebola Screen: No symptoms or risks identified at this time. Initial Sepsis Screen: Does the patient meet any 2 criteria? No. Patient's initial sepsis screen is negative. Does the patient have a suspected source of infection? No. Patient's initial sepsis screen is negative. Risk Assessment: Do you want to hurt yourself or someone else? Patient reports no desire to harm self or others. Onset of symptoms was April 08, 2022. 20:26 Mechanism of Injury: Fall. 3 20:43 Trauma event details: Injury occurred in the [facility], Injury occurred: at [facility] home. Injury occurred: April 08, 2022. Triage Assessment: 20:24 General: Appears in no apparent distress. Behavior is agitated. Neuro: Level of 3 Consciousness is awake, alert, obeys commands, Oriented to person, place, time, situation. Cardiovascular: Patient's skin is warm and dry. Respiratory: Airway is patent Trachea midline Respiratory effort is even, unlabored, Respiratory pattern is regular, symmetrical. Trauma Activation: Physician: ED Physician; Name: page; Notified At: ; Arrived At: Physician: General Surgeon; Name: ; Notified At: ; Arrived At: Physician: Radiology; Name: ; Notified At: ; Arrived At: Physician: Respiratory; Name: ; Notified At: ; Arrived At: Physician: Lab; Name: ; Notified At: ; Arrived At: Historical: - Allergies: 18:34 Cipro; iw 18:34 Levaquin; iw - PMHx: 18:34 Diabetes - IDDM; Hypertension; Hypothyroidism; iw - Immunization history:: Adult Immunizations up to date. - Immunization history: Last tetanus immunization: - up to date. - Social history:: Smoking status: unknown. Screenin:23 Abuse screen: Denies threats or abuse. Denies injuries from another. Nutritional kd3 screening: No deficits noted. Tuberculosis screening: No symptoms or risk factors identified. Fall Risk Fall in past 12 months (25 points). Primary Survey: 20:23 NO uncontrolled hemorrhage observed. A: The client is awake and alert. The airway is kd3 patent. Breathing/Chest: Spontaneous respiratory effort, equal unlabored respirations, breath sounds clear bilaterally, regular pattern, symmetrical chest rise and fall. Circulation: No external hemorrhage present. Regular and strong central pulse, skin warm/dry/normal color. Disability Pupils are equal, round, reactive to light and accommodation. Exposure/Environment: All clothing and personal items were removed. There is no evidence of uncontrolled external bleeding. Obvious injury(ies) are noted at this time: facial bruising A warming method has been applied: A warm blanket has been provided to the patient. 20:25 Reassessment. kd3 20:42 Reassessment Alertness and Airway: Awake and alert. The airway is patent. Airway Patent kd3 Breathing: Spontaneous respiratory effort, equal unlabored respirations, breath sounds clear bilaterally, regular pattern with symmetrical chest rise and fall. Respiratory effort Spontaneous Breath sounds Clear Respiratory pattern Regular Chest inspection Symmetrical Circulation: No external hemorrhage noted. Regular and strong central pulse, skin warm/dry/normal color. Disability: Pupils Pupils are equal, round, reactive to light and accomodation. Assessment: 20:20 Reassessment: when this RN went to administer pain medications to the pt, pt stated "I kd3 am not in pain right now, I just want a prescription to go home with in case I am in pain later". pt educated that the PA would make the decision to send her home with something for pain. pt states "well just give me that pill and I will take it home with me". pt educated regard medication administration at the hospital. medication returned to [facility]. 20:23 Pain: Denies pain. kd3 20:43 Reassessment: Patient and/or family updated on plan of care and expected duration. Pain kd3 level reassessed. Patient is alert, oriented x 3, equal unlabored respirations, skin warm/dry/pink. Patient denies pain at this time. Vital Signs: 18:33 BP 155 / 84; Pulse 84; Resp 16; Temp 98.0; Pulse Ox 98% on R/A; iw 20:44 BP 162 / 98; Pulse 84; Resp 16; Pulse Ox 99% on R/A; kd3 Scott Coma Score: 20:24 Eye Response: spontaneous(4). Verbal Response: oriented(5). Motor Response: obeys kd3 commands(6). Total: 15. Trauma Score (Adult): 20:24 Eye Response: spontaneous(1); Verbal Response: oriented(1); Motor Response: obeys kd3 commands(2); Systolic BP: > 89 mm Hg(4); Respiratory Rate: 10 to 29 per min(4); [place] Score: 15; Trauma Score: 12 ED Course: 18:27 Patient arrived in ED. mr 18:33 Triage completed. iw 18:41 Gustavo Urban PA is PHCP. cp 18:42 Murtaza Carrera MD is Attending Physician. cp 18:59 Head C Spine Mpr Wo Con In Process Unspecified. EDMS 18:59 CT Facial Bones W/O Con In Process Unspecified. EDMS 19:27 Attending Physician role handed off by Murtaza Carrera MD joselo 19:27 Gustavo Jc MD is Attending Physician. joselo 19:35 Geovani Gamboa, GEMMA is Primary Nurse. ke1 20:25 Arm band placed on right wrist. kd3 20:26 Patient has correct armband on for positive identification. kd3 20:28 Patricia Dominguez MD is Referral Physician. cp 20:29 Syd Maki DDS is Referral Physician. cp 20:41 No provider procedures requiring assistance completed. Patient did not have IV access kd3 during this emergency room visit. 20:43 Patient maintains SpO2 saturation greater than 95% on room air. kd3 20:43 Thermoregulation: warm blanket given to patient. kd3 Administered Medications: 20:26 Not Given (Patient Refused): Hydrocodone-Acetaminophen (7.5 mg-325 mg) 1 tabs PO once; kd3 RASS on ADMIN: Combtv4, Very Agttd3, Agttd2, Rstlss1, AlertClm0, Drwsy-1, Lt Sdtn-2, Mod Sdtn-3, Dp Sdtn-4, UnArsble-5 20:38 Drug: Augmentin (Amoxicillin-Clavulanate) 875 mg Route: PO; kd3 20:44 Follow up: Response: No adverse reaction kd3 Medication: 20:43 VIS not applicable for this client. kd3 Intake: 20:24 PO: 0ml; Total: 0ml. kd3 Outcome: 20:30 Discharge ordered by MD. cp 20:42 Discharged to home via wheelchair, with family. kd3 20:42 Condition: stable 20:42 Discharge instructions given to patient, Instructed on discharge instructions, follow up and referral plans. medication usage, Demonstrated understanding of instructions, follow-up care, medications, Prescriptions given X 20:43 Patient's length of stay was not longer than 2 hours. kd3 20:45 Patient left the ED. kd3 Signatures: Dispatcher [employer] EDGustavo Mccarthy MD MD [facility] Phyllis Falcon, RN Gustavo Cline, PA PA Isabella Bull, RN RN kd3 Geovani Gamboa RN RN ke1
[2022-04-08] MEDS ORDERED: AMOX/K CLAV 875 MG TAB ONE (20:43)
[2022-04-08 21:17] VITALS: TEMP 98
[2022-04-08 21:19] VITALS: BP 162/98; O2SAT 99
== END 2022-04-08 20:45 | disposition home or self-care (01) ==
LOC: ER 18:24
DX: S02.32XA Fracture of orbital floor, left side, initial encounter for closed fracture (principal); S02.2XXA Fracture of nasal bones, initial encounter for closed fracture; S02.5XXA Fracture of tooth (traumatic), initial encounter for closed fracture; W18.30XA Fall on same level, unspecified, initial encounter; Y93.01 Activity, walking, marching and hiking; E11.9 Type 2 diabetes mellitus without complications; I10 Essential (primary) hypertension; Z88.1 Allergy status to other antibiotic agents
CPT/HCPCS: 70450; 70486; 72125; 76377; 99284